=== PATIENT | female | born 1975 | race Hispanic/Latino ===

== ENCOUNTER 2018-06-22 10:44 | Emergency (ER) | payer OTHER ==
[2018-06-22 10:48] VITALS: BMI 24.0
[2018-06-22] MEDS ORDERED: Sodium Chloride 0.9% 1,000 ML IV STA (11:41)
[2018-06-22 12:35] LABS: BASO # 0.03 K/mm3 (0.0-2.0); BASO % 0.4 % (0.0-3.0); EOS # 0.1 (0.0-0.7); EOS % 0.6 % (1.5-5.0); GRAN # 5.32 (1.4-6.5); GRAN % 65.8 % (50.0-68.0); HEMOGLOBIN 13.1 g/dL (12.0-16.0); LYMPH # 2.3 (1.2-3.4); MEAN CELL VOLUME 91.8 fl (80.0-105.0); MEAN CORPUSCULAR HEMOGLOBIN 30.8 pg (25.0-35.0); MEAN CORPUSCULAR HGB CONC 33.6 g/dl (31.0-37.0); MEAN PLATELET VOLUME 8.6 fl (7.0-11.0); MONO # 0.4 (0.1-0.6); MONO % 5.2 % (1.0-6.0); RBC 4.25 10^6/uL (3.5-6.1); RED CELL DISTRIBUTION WIDTH 13.9 % (11.5-14.5); WHITE BLOOD COUNT 8.1 10^3/ul (4.5-11.0)
[2018-06-22 12:47] LABS: ALB/GLOB RATIO 1.3 (1.1-1.8); ALBUMIN 4.4 g/dL (3.0-4.8); ALT/SGPT 36 U/L (7-56); AST/SGOT 62 U/L (14-36); BLOOD UREA NITROGEN 6 mg/dL (7-21); CALCIUM 8.2 mg/dL (8.4-10.5); GFR NON-AFRICAN AMERICAN > 60
--- NOTE | 2018-06-22 13:30 | ED PDOC ---
Arrival/HPI <Randal Reis - Last Filed: 06/22/18 15:43> - General Historian: Patient, EMS - History of Present Illness Narrative History of Present Illness (Text): 06/22/18 13:35 42 y/o female with PMH of DM and alcohol/substance abuse presents to ED via EMS for acute alcohol intoxication. Pt was found sleeping on a stoop on [address] in [place] this morning. Pt unable to provide name or other identifying factors. Currently c/o nausea and left thigh bruise and tenderness, unable to tell me how bruising occurred but states she did not fall. States she took her Metformin this AM. Denies fevers, chest pain, palpitations, SOB, abdominal pain, urinary symptoms, headache, neck pain, back pain. <Sara Norman - Last Filed: 06/22/18 21:03> - General Chief Complaint: Alcohol Ingestion Time Seen by Provider: 06/22/18 10:54 Past Medical History - Provider Review Nursing Documentation Reviewed: Yes - Cardiac Hx Cardiac Disorders: No - Pulmonary Hx Respiratory Disorders: No - Neurological Hx Neurological Disorder: No - HEENT Hx HEENT Disorder: No - Renal Hx Renal Disorder: No - Endocrine/Metabolic Hx Endocrine Disorders: Yes Hx Diabetes Mellitus Type 2: Yes - Hematological/Oncological Hx Blood Disorders: No - Integumentary Hx Dermatological Disorder: No - Musculoskeletal/Rheumatological Hx Musculoskeletal Disorders: No - Gastrointestinal Hx Gastrointestinal Disorders: No - Genitourinary/Gynecological Hx Genitourinary Disorders: No - Psychiatric Hx Psychophysiologic Disorder: No Hx Substance Use: No <Sara Norman - Last Filed: 06/22/18 21:03> Family/Social History - Physician Review Nursing Documentation Reviewed: Yes Family/Social History: Unknown Family HX Smoking Status: Never Smoked Hx Alcohol Use: No Hx Substance Use: No <Sara Norman - Last Filed: 06/22/18 21:03> Allergies/Home Meds <Randal Reis - Last Filed: 06/22/18 15:43> <Sara Norman - Last Filed: 06/22/18 21:03> Allergies/Adverse Reactions: Allergies No Known Allergies Allergy (Verified 06/22/18 10:48) Home Medications: Home Meds Medication Instructions Recorded Confirmed No Known Home Med 06/22/18 06/22/18 Review of Systems - Physician Review All systems were reviewed & negative as marked: Yes - Review of Systems Systems not reviewed;Unavailable: Intoxicated Respiratory: absent: SOB, Cough Cardiovascular: absent: Chest Pain, Palpitations Gastrointestinal: absent: Abdominal Pain, Nausea, Vomiting Genitourinary Female: absent: Urine Output Changes, Vaginal Bleeding Musculoskeletal: Myalgias (left thigh). absent: Back Pain, Neck Pain Skin: Other Neurological: Speech Changes (slurred speech). absent: Headache, Focal Weakness <Sara Norman - Last Filed: 06/22/18 21:03> Physical Exam Vital Signs Temp Pulse Resp BP Pulse Ox 06/22/18 11:36 97.2 F L 88 18 129/85 99 <Randal Reis - Last Filed: 06/22/18 15:43> Vital Signs Reviewed: Yes Vital Signs Temp Pulse Resp BP Pulse Ox 06/22/18 11:36 97.2 F L 88 18 129/85 99 Temperature: Afebrile Blood Pressure: Normal Pulse: Regular Respiratory Rate: Normal Appearance: Positive for: Well-Appearing, Non-Toxic, Comfortable Pain Distress: None Mental Status: Positive for: Alert and Oriented X 3 - Systems Exam Head: Present: Atraumatic, Normocephalic Pupils: Present: PERRL, Other (dilated) Extroacular Muscles: Present: EOMI Conjunctiva: Present: Normal Ears: Present: NORMAL TM Mouth: Present: Moist Mucous Membranes Pharnyx: Present: Normal Nose (External): Present: Atraumatic Nose (Internal): Present: Normal Inspection, No Active Bleeding, Moist Neck: Present: Normal Range of Motion. No: Meningeal Signs, MIDLINE TENDERNESS, Paraspinal Tenderness Respiratory/Chest: Present: Clear to Auscultation, Good Air Exchange. No: Respiratory Distress, Accessory Muscle Use Cardiovascular: Present: Regular Rate and Rhythm, Normal S1, S2. No: Murmurs Abdomen: Present: Normal Bowel Sounds. No: Tenderness, Distention, Peritoneal Signs, Rebound, Guarding Back: Present: Normal Inspection Upper Extremity: Present: Normal Inspection, Normal ROM, NORMAL PULSES. No: Cyanosis, Edema, Tenderness, Swelling, Erythema, Deformity Lower Extremity: Present: Normal Inspection, NORMAL PULSES, Normal ROM, Tenderness (left inner thigh), Neurovascularly Intact, Other (old, well-healing bruise over entirety of left inner thigh). No: Edema, CALF TENDERNESS, Mert's Sign, Swelling, Erythema, Deformity, Temperature Abnormalties Neurological: Present: GCS=15, CN II-XII Intact, Speech Normal, Motor Func Grossly Intact, Normal Sensory Function, Gait Normal Skin: Present: Warm, Dry, Other (old, well-healing bruise over entirety of left inner thigh). No: Rashes, Normal Color, Diaphoretic, Erythematous, Induration, Hot, Cold, Pale, Laceration, Abrasion Lymphatic: No: Cervical Adenopathy Psychiatric: Present: Alert, Oriented x 3, Normal Insight, Normal Concentration, Intoxicated. No: Anxious, Agitated, Depressed Mood, Suicidal Ideation, Homicidal Ideation, Delusional, Hallucinations, Lethargic <Sara Norman - Last Filed: 06/22/18 21:03> Medical Decision Making - Lab Interpretations Lab Results: 06/22/18 12:20 06/22/18 12:20 Lab Results 06/22/18 14:50: Urine Color Colorless, Urine Appearance Clear, Urine pH 6.5, Ur Specific Newell <= 1.005, Urine Protein Negative, Urine Glucose (UA) Negative, Urine Ketones Negative, Urine Blood Negative, Urine Nitrate Negative, Urine Germán irubin Negative, Urine Urobilinogen 0.2, Ur Leukocyte Esterase Negative 06/22/18 12:20: Alcohol, Quantitative 461 H* 06/22/18 12:20: WBC 8.1, RBC 4.25, Hgb 13.1, Hct 39.0, MCV 91.8, MCH 30.8, MCHC 33.6, RDW 13.9, Plt Count 431, MPV 8.6, Gran % 65.8, Lymph % (Auto) 28.0, Mcnairy % (Auto) 5.2, Eos % (Auto) 0.6 L, Baso % (Auto) 0.4, Gran # 5.32, Lymph # (Auto) 2.3, Mcnairy # (Auto) 0.4, Eos # (Auto) 0.1, Baso # (Auto) 0.03 06/22/18 12:20: Sodium 141, Potassium 3.9, Chloride 100, Carbon Dioxide 22, Anion Gap 23 H, BUN 6 L, Creatinine 0.5 L, Est GFR ( Amer) > 60, Est GFR (Non-Af Amer) > 60, Random Glucose 169 H, Calcium 8.2 L, Total Bilirubin 0.2, AST 62 H, ALT 36, Alkaline Phosphatase 53, Total Protein 7.7, Albumin 4.4, Globulin 3.3, Albumin/Globulin Ratio 1.3 - RAD Interpretation Radiology Orders: 06/22/18 14:52 Femur Left [FEMUR MIN 2 VIEWS LT] [RAD] Stat HIP MIN 2V W/ PELVIS LT [RAD] Stat - Medication Orders Current Medication Orders: Discontinued Medications Sodium Chloride (Sodium Chloride 0.9%) 1,000 mls @ 999 mls/hr IV .Q1H1M STA Stop: 06/22/18 12:41 Last Admin: 06/22/18 12:29 Dose: 999 mls/hr eMAR Start Stop Document 06/22/18 12:29 [email or web address] (Rec: 06/22/18 12:30 [email or web address] [id number]) Intravenous Solution Start Date 06/22/18 Start Time 12:30 Ketorolac Tromethamine (Toradol) 15 mg IVP STAT STA Stop: 06/22/18 13:51 Last Admin: 06/22/18 15:20 Dose: 15 mg MAR Pain Assessment Document 06/22/18 15:20 [email or web address] (Rec: 06/22/18 15:20 [email or web address] [id number]) Pain Reassessment Is this a pain reassessment? No Sleep Is patient sleeping during reassessment? No Presence of Pain Presence of Pain Yes Pain Scale Used Protocol: PSCALES Pain Scale Used Numeric Location Pain Location Body Site Abdomen Description Description Constant Intensity of Pain at present 7 Pain Behavior Facial Grimacing Alleviating Factors/Management Medication Techniques Alleviating Factors Medication IVP Administration Document 06/22/18 15:20 [email or web address] (Rec: 06/22/18 15:20 [email or web address] [id number]) Charges for Administration # of IVP Administrations 1 Ondansetron HCl (Zofran Inj) 4 mg IVP STAT STA Stop: 06/22/18 13:48 Last Admin: 06/22/18 15:17 Dose: 4 mg IVP Administration Document 06/22/18 15:17 [email or web address] (Rec: 06/22/18 15:20 [email or web address] [id number]) Charges for Administration # of IVP Administrations 1 <Randal Reis - Last Filed: 06/22/18 15:43> ED Course and Treatment: 06/22/18 13:27 Initial Plan: --CBC, CMP --Alcohol Level --Urine Drug Screen --POC Preg --Left hip, left femur xray --IVF --Reassess and disposition --Discharge when clinically sober 06/22/18 14:55 On re-eval, exam unchanged. Pt continues to deny alcohol or drug use. CBC: wnl CMP: elevated AST, otherwise unremarkable Alcohol Level: 461 Urine Drug Screen: negative POC Preg - negative Left Hip XR - FINDINGS: BONES: Normal. No fracture. JOINTS: Normal. SOFT TISSUES: Normal. OTHER FINDINGS: None. IMPRESSION: Normal left hip radiographs. Left femur XR - FINDINGS: No significant/acute osseous, articular or soft tissue abnormalities. IMPRESSION: Negative study 06/22/18 15:54 On re-eval, exam unchanged. Pt continues to deny alcohol or drug use. 06/22/18 16:55 On re-eval, exam unchanged. Pt continues to deny alcohol or drug use. 06/22/18 18:45 Pt becoming agitated and aggressive, demanding to be discharged. Explained to pt that because she does not have a ride home, she cannot leave until her alcohol level is <100, approximately 1:00am. Pt removed her IV line. - will give 1mg IM Ativan 06/22/18 18:55 Pt resting quietly in bed, watching TV. Complaining of pain over left thigh brui sing. -will give lidoderm patch 06/22/18 19:24 Pt able to find a friend to pick her up. Friend is capable of taking care of and observing pt at home. Pt alert and oriented with steady gait, safe for discharge home with friend. Impression: Alcohol Intoxication, Alcohol abuse Plan: --Stop alcohol consumption --remove lidoderm patch after 12h --ibuprofen every 6 hours with food for pain --Seek AA --Increase fluids --Followup with primary doctor within 2 days --Return to ED with new or worsening symptoms - Lab Interpretations Lab Results: 06/22/18 12:20 06/22/18 12:20 Lab Results 06/22/18 12:20: Alcohol, Quantitative 461 H* 06/22/18 12:20: WBC 8.1, RBC 4.25, Hgb 13.1, Hct 39.0, MCV 91.8, MCH 30.8, MCHC 33.6, RDW 13.9, Plt Count 431, MPV 8.6, Gran % 65.8, Lymph % (Auto) 28.0, Mcnairy % (Auto) 5.2, Eos % (Auto) 0.6 L, Baso % (Auto) 0.4, Gran # 5.32, Lymph # (Auto) 2.3, Mcnairy # (Auto) 0.4, Eos # (Auto) 0.1, Baso # (Auto) 0.03 06/22/18 12:20: Sodium 141, Potassium 3.9, Chloride 100, Carbon Dioxide 22, Anion Gap 23 H, BUN 6 L, Creatinine 0.5 L, Est GFR ( Amer) > 60, Est GFR (Non-Af Amer) > 60, Random Glucose 169 H, Calcium 8.2 L, Total Bilirubin 0.2, AST 62 H, ALT 36, Alkaline Phosphatase 53, Total Protein 7.7, Albumin 4.4, Globulin 3.3, Albumin/Globulin Ratio 1.3 I have reviewed the lab results: Yes Interpretation: No sign. chg./baseline - Medication Orders Current Medication Orders: Discontinued Medications Sodium Chloride (Sodium Chloride 0.9%) 1,000 mls @ 999 mls/hr IV .Q1H1M STA Stop: 06/22/18 12:41 Last Admin: 06/22/18 12:29 Dose: 999 mls/hr eMAR Start Stop Document 06/22/18 12:29 [email or web address] (Rec: 06/22/18 12:30 [email or web address] [id number]) Intravenous Solution Start Date 06/22/18 Start Time 12:30 <Sara Norman - Last Filed: 06/22/18 21:03> - PA / ENGLISH INSTRUCTOR / Resident Statement /DO has reviewed & agrees with the documentation as recorded. <Randal Reis - Last Filed: 06/22/18 15:43> Disposition/Present on Arrival <Randal Reis - Last Filed: 06/22/18 15:43> - Present on Arrival Any Indicators Present on Arrival: No History of DVT/PE: No History of Uncontrolled Diabetes: No Urinary Catheter: No History of Decub. Ulcer: No History Surgical Site Infection Following: None - Disposition Have Diagnosis and Disposition been Completed?: No Disposition Time: 13:00 Patient Plan: Discharge <Sara Norman - Last Filed: 06/22/18 21:03> - Disposition Diagnosis: Alcohol abuse Disposition: HOME/ ROUTINE Condition: IMPROVED Discharge Instructions (ExitCare): Alcohol Abuse and Alcoholism (DC) Additional Instructions: --Stop alcohol consumption --Seek AA --Increase fluids --Followup with primary doctor within 2 days --Return to ED with new or worsening symptoms Referrals: Harini Corea DO [Primary Care Provider] - Follow up with primary [facility] [Outside] - Follow up with primary Forms: [employer] (Israeli)
[2018-06-22 15:31] LABS: PH,URINE 6.5 (4.7-8.0); URINE BILIRUBIN NEGATIVE (NEGATIVE); URINE BLOOD NEGATIVE (NEGATIVE); URINE GLUCOSE (UA) NEGATIVE (NEGATIVE); URINE LEUKOCYTE ESTERASE NEGATIVE Leu/uL (NEGATIVE); URINE PROTEIN NEGATIVE mg/dL (<30 mg/dL); URINE UROBILINOGEN 0.2 E.U./dL (<1 E.U./dL)
[2018-06-22 15:32] LABS: URINE APPEARANCE CLEAR (CLEAR); URINE COLOR COLORLESS (YELLOW)
[2018-06-22 15:51] LABS: BARBITURATES, UR NEGATIVE (NEGATIVE)
[2018-06-22 16:08] LABS: BENZODIAZEPINES, UR NEGATIVE (NEGATIVE); OPIATES, UR NEGATIVE (NEGATIVE); PHENCYCLIDINE, UR NEGATIVE (NEGATIVE)
--- NOTE | 2018-06-22 18:22 | RAD ---
PROCEDURE: Left Hip X-ray Radiographs. HISTORY: bruising, possible trauma COMPARISON: None. FINDINGS: BONES: Normal. No fracture. JOINTS: Normal. SOFT TISSUES: Normal. OTHER FINDINGS: None. IMPRESSION: Normal left hip radiographs.
--- NOTE | 2018-06-22 18:23 | RAD ---
Date of service: 06/22/2018 PROCEDURE: Left femur HISTORY: bruising, possible fall COMPARISON: June 22, 2018 left hip reported separately TECHNIQUE: Standard protocol for this study/examination. FINDINGS: No significant/acute osseous, articular or soft tissue abnormalities. IMPRESSION: Negative study
[2018-06-22 18:36] VITALS: RESP 17; O2SAT 99
[2018-06-22] MEDS ORDERED: Lidocaine 5% Patch TD STA (18:47)
[2018-06-22 19:37] VITALS: BP 128/72; PULSE 89; TEMP 98.2
== END 2018-06-22 19:37 | disposition home or self-care (01) ==
LOC: MERGE 10:44 → ED 10:44
DX: F10.129 Alcohol abuse with intoxication, unspecified (principal); E11.9 Type 2 diabetes mellitus without complications
CPT/HCPCS: 73502; 73552; 80053; 80320; 80324; 80345; 80346; 80349; 80353; 80358; 80361; 81003; 82948; 83992; 85025; 87086; 96372; 96374; 96375; 96376; 99284; J1885; J2060; J2405; J7030

== ENCOUNTER 2018-08-28 21:35 | Emergency (ER) | payer OTHER ==
[2018-08-28 21:35] VITALS: BMI 25.0
[2018-08-28 23:37] LABS: HEMOGLOBIN 13.8 g/dL (12.0-16.0); MEAN CORPUSCULAR HEMOGLOBIN 32.6 pg (25.0-35.0); MEAN CORPUSCULAR HGB CONC 32.3 g/dl (31.0-37.0); MEAN PLATELET VOLUME 8.8 fl (7.0-11.0); RBC 4.23 10^6/uL (3.5-6.1); RED CELL DISTRIBUTION WIDTH 15.1 % (11.5-14.5); WHITE BLOOD COUNT 5.6 10^3/uL (4.5-11.0)
[2018-08-28 23:41] LABS: ALB/GLOB RATIO 1.2 (1.1-1.8); ALBUMIN 4.6 g/dL (3.0-4.8); ALT/SGPT 50 U/L (7-56); AST/SGOT 77 U/L (14-36); BLOOD UREA NITROGEN 13 mg/dL (7-21); CALCIUM 8.3 mg/dL (8.4-10.5); GFR NON-AFRICAN AMERICAN > 60; MEAN CELL VOLUME 100.9 fl (80.0-105.0)
--- NOTE | 2018-08-29 01:59 | ED PDOC ---
Arrival/HPI - General Chief Complaint: Alcohol Ingestion Time Seen by Provider: 08/28/18 21:38 EM Caveat: Intoxicated - History of Present Illness Narrative History of Present Illness (Text): 08/28/18 21:50 42 year old female, whose past medical history includes alcohol abuse and diabetes, who presents to the Emergency department brought in by EMS after [place]. Patient has a long standing history of alcohol abuse and has been seen multiple times for the intoxication. Patient in the Emergency department on arrival appears grossly intoxicated drowsy, but arousable. Patient is unable to clearly verbalize. HPI and ROS limited due to patient's state of intoxication. Past Medical History - Provider Review Nursing Documentation Reviewed: Yes - Infectious Disease Hx of Infectious Diseases: None - Tetanus Immunization Tetanus Immunization: Unknown - Past Medical History Past Medical History: Unable to Obtain - Cardiac Hx Cardiac Disorders: No - Pulmonary Hx Respiratory Disorders: No - Neurological Hx Neurological Disorder: No - HEENT Hx HEENT Disorder: No - Renal Hx Renal Disorder: No - Endocrine/Metabolic Hx Endocrine Disorders: No - Hematological/Oncological Hx Blood Disorders: No - Integumentary Hx Dermatological Disorder: No - Musculoskeletal/Rheumatological Hx Musculoskeletal Disorders: No - Gastrointestinal Hx Gastrointestinal Disorders: No - Genitourinary/Gynecological Hx Genitourinary Disorders: No - Psychiatric Hx Psychophysiologic Disorder: No Hx Substance Use: Yes - Past Surgical History Past Surgical History: Unable to Obtain - Anesthesia Hx Anesthesia: No - Suicidal Assessment Feels Threatened In Home Enviroment: No Family/Social History - Physician Review Nursing Documentation Reviewed: Yes Family/Social History: No Known Family HX Smoking Status: Current Some Days Smoker Hx Alcohol Use: Yes Frequency of alcohol use: Daily Hx Substance Use: Yes Hx Substance Use Treatment: No Allergies/Home Meds Allergies/Adverse Reactions: Allergies pineapple Allergy (Verified 08/28/18 21:51) RASH ziprasidone HCl [From Geodon] Adverse Reaction (Verified 08/28/18 21:51) FATIGUE Home Medications: Home Meds Medication Instructions Recorded Confirmed Unobtainable 06/23/18 08/28/18 Review of Systems - Physician Review All systems were reviewed & negative as marked: Yes - Review of Systems Systems not reviewed;Unavailable: Intoxicated Physical Exam Vital Signs Reviewed: Yes Vital Signs Temp Pulse Resp BP Pulse Ox 08/28/18 21:51 97.2 F L 81 16 109/81 96 Temperature: Afebrile Blood Pressure: Normal Pulse: Regular Respiratory Rate: Normal Appearance: Positive for: Well-Appearing, Non-Toxic, Comfortable Pain Distress: None Mental Status: Positive for: other (Drowsy but arousable) Finger Stick Blood Glucose: 90 - Systems Exam Head: Present: Atraumatic, Normocephalic Pupils: Present: PERRL Extroacular Muscles: Present: EOMI Conjunctiva: Present: Normal Mouth: Present: Moist Mucous Membranes Neck: Present: Normal Range of Motion Respiratory/Chest: Present: Clear to Auscultation, Good Air Exchange. No: Respiratory Distress, Accessory Muscle Use Cardiovascular: Present: Regular Rate and Rhythm, Normal S1, S2. No: Murmurs Abdomen: No: Tenderness, Distention, Peritoneal Signs Back: Present: Normal Inspection Upper Extremity: Present: Normal Inspection. No: Cyanosis, Edema Lower Extremity: Present: Normal Inspection. No: Edema Neurological: Present: GCS=15, CN II-XII Intact Skin: Present: Warm, Dry, Normal Color. No: Rashes Psychiatric: Present: Intoxicated, Other (Drowsy but arousable) Medical Decision Making ED Course and Treatment: 08/28/18 21:50 Impression: 42 year old female presents for public intoxication tonight. Plan: -- EKG -- Labs -- Reassess and disposition Prior Visits: Notes and results from previous visits were reviewed. Progress Notes: 08/29/18 04:22 EKG shows NSR at 67 BPM with prolong QT. Nonspecific St/T changes. Interpreted by me. 08/29/18 07:00 Case endorsed to /pending sobriety/reassess/final disposition - Lab Interpretations Lab Results: 08/28/18 22:54 08/28/18 22:54 Lab Results 08/28/18 22:54: WBC 5.6, RBC 4.23, Hgb 13.8, Hct 42.7, MCV 100.9 D, MCH 32.6, MCHC 32.3, RDW 15.1 H, Plt Count 359, MPV 8.8 08/28/18 22:54: Alcohol, Quantitative 510 H* 08/28/18 22:54: Sodium 148, Potassium 4.2, Chloride 109 H, Carbon Dioxide 27, Anion Gap 16, BUN 13, Creatinine 0.6 L, Est GFR ( Amer) > 60, Est GFR (Non-Af Amer) > 60, Random Glucose 95, Calcium 8.3 L, Total Bilirubin 0.3, AST 77 H D, ALT 50, Alkaline Phosphatase 62, Total Protein 8.3, Albumin 4.6, Globulin 3.7, Albumin/Globulin Ratio 1.2 I have reviewed the lab results: Yes - EKG Interpretation Interpreted by ED Physician: Yes Type: 12 lead EKG - Scribe Statement The provider has reviewed the documentation as recorded by the Jamaica Bender Provider Scribe Attestation: All medical record entries made by the [place] were at my direction and personally dictated by me. I have reviewed the chart and agree that the record accurately reflects my personal performance of the history, physical exam, medical decision making, and the department course for this patient. I have also personally directed, reviewed, and agree with the discharge instructions and disposition. Disposition/Present on Arrival - Present on Arrival Any Indicators Present on Arrival: No History of DVT/PE: No History of Uncontrolled Diabetes: No Urinary Catheter: No History of Decub. Ulcer: No History Surgical Site Infection Following: None - Disposition Have Diagnosis and Disposition been Completed?: No Diagnosis: Alcohol intoxication Disposition Time: 07:00 Patient Problems: Current Active Problems Problem Status Onset Alcohol intoxication Acute Condition: STABLE Forms: [employer] (Martiniquais)
[2018-08-29 02:38] VITALS: RESP 16
--- NOTE | 2018-08-29 07:13 | ED PDOC ---
Physical Exam Vital Signs Reviewed: Yes Vital Signs Temp Pulse Resp BP Pulse Ox 08/29/18 05:30 97.7 F 72 16 112/74 96 08/29/18 02:35 70 16 110/69 96 08/29/18 00:01 97.6 F 75 18 117/82 96 08/28/18 21:51 97.2 F L 81 16 109/81 96 Temperature: Afebrile Blood Pressure: Normal Pulse: Regular Respiratory Rate: Normal Appearance: Positive for: Well-Appearing, Non-Toxic, Comfortable Pain Distress: None Mental Status: Positive for: Alert and Oriented X 3 Finger Stick Blood Glucose: 90 - Systems Exam Head: Present: Atraumatic, Normocephalic Pupils: Present: PERRL Extroacular Muscles: Present: EOMI Conjunctiva: Present: Normal Mouth: Present: Moist Mucous Membranes Neck: Present: Normal Range of Motion Respiratory/Chest: Present: Clear to Auscultation, Good Air Exchange. No: Respiratory Distress, Accessory Muscle Use Cardiovascular: Present: Regular Rate and Rhythm, Normal S1, S2. No: Murmurs Abdomen: No: Tenderness, Distention, Peritoneal Signs Back: Present: Normal Inspection Upper Extremity: Present: Normal Inspection. No: Cyanosis, Edema Lower Extremity: Present: Normal Inspection. No: Edema Neurological: Present: GCS=15, CN II-XII Intact, Speech Normal Skin: Present: Warm, Dry, Normal Color. No: Rashes Psychiatric: Present: Alert, Oriented x 3, Intoxicated Medical Decision Making ED Course and Treatment: 08/29/18 07:11 Case endorsed to me by Dr. Rodriguez with ETOH of 510 at 11pm last night. Labs are unremarkable except ETOH of 510, indicates etoh clears at approximately ~1 pm. Pt in NAD 08/29/18 09:11 Pt endorsed she wanted to leave- I endorsed she was not clinically sober yet. She noted that she doesnt have to listen to me. I informed her possible requirement of sedation and prolongation of stay. She 08/29/18 12:15 Reassessed, clinically sober, no signs of withdrawal walking well in NAD. Normal neuro exam Pt clear for d/c home, reccomended by myself to decrease etoh. Pt endorsed understanding. - Lab Interpretations Lab Results: 08/28/18 22:54 08/28/18 22:54 Lab Results 08/28/18 22:54: WBC 5.6, RBC 4.23, Hgb 13.8, Hct 42.7, MCV 100.9 D, MCH 32.6, MCHC 32.3, RDW 15.1 H, Plt Count 359, MPV 8.8 08/28/18 22:54: Alcohol, Quantitative 510 H* 08/28/18 22:54: Sodium 148, Potassium 4.2, Chloride 109 H, Carbon Dioxide 27, Anion Gap 16, BUN 13, Creatinine 0.6 L, Est GFR ( Amer) > 60, Est GFR (Non-Af Amer) > 60, Random Glucose 95, Calcium 8.3 L, Total Bilirubin 0.3, AST 77 H D, ALT 50, Alkaline Phosphatase 62, Total Protein 8.3, Albumin 4.6, Globulin 3.7, Albumin/Globulin Ratio 1.2 I have reviewed the lab results: Yes - Scribe Statement The provider has reviewed the documentation as recorded by the Scribe Caitlyn Tian Provider Scribe Attestation: All medical record entries made by the Scribe were at my direction and personally dictated by me. I have reviewed the chart and agree that the record accurately reflects my personal performance of the history, physical exam, medical decision making, and the department course for this patient. I have also personally directed, reviewed, and agree with the discharge instructions and dis position. Disposition/Present on Arrival - Present on Arrival Any Indicators Present on Arrival: No History of DVT/PE: No History of Uncontrolled Diabetes: No Urinary Catheter: No History of Decub. Ulcer: No History Surgical Site Infection Following: None - Disposition Have Diagnosis and Disposition been Completed?: Yes Diagnosis: Alcohol intoxication Disposition Time: 12:14 Patient Problems: Current Active Problems Problem Status Onset Alcohol intoxication Acute Condition: STABLE Discharge Instructions (ExitCare): Alcohol Use - When Is Drinking a Problem?, Effects of Alcohol on Your Health Additional Instructions: DECREASE THE AMOUNT OF ALCOHOL YOU ARE DRINKING. IT IS BAD FOR YOUR HEALTH. AKHIL CHAN, thank you for letting us take care of you today. Your provider was Nickolas Dickerson and you were treated for ETOH. The emergency medical care you received today was directed at your acute symptoms. If you were prescribed any medication, please fill it and take as directed. It may take several days for your symptoms to resolve. Return to the Emergency Department if your symptoms worsen, do not improve, or if you have any other problems. Please contact your doctor or call one of the physicians/clinics you have been referred to that are listed on the Patient Visit Information form that is included in your discharge packet. Bring any paperwork you were given at discharge with you along with any medications you are taking to your follow up visit. Our treatment cannot replace ongoing medical care by a primary care provider outside of the emergency department. Thank you for allowing the [employer] team to be part of your care today. If you had an X-Ray or CT scan: A Radiologist will review the ED reading if any change in treatment is needed we will contact you. If you had a blood, urine, or wound culture: It will take several days for the results, if any change in treatment is needed we will contact you. If you had an STI test: It will take 48 hours for the results. Please call after 1 week if you have not heard back. Referrals: [facility] [Outside] - Follow up with primary [facility] [Outside] - Follow up with primary [facility] [Outside] - Follow up with primary [facility] [Outside] - Follow up with primary Forms: [employer] (Sami)
[2018-08-29 08:59] LABS: BARBITURATES, UR POSITIVE (NEGATIVE); BENZODIAZEPINES, UR NEGATIVE (NEGATIVE); OPIATES, UR NEGATIVE (NEGATIVE); PHENCYCLIDINE, UR NEGATIVE (NEGATIVE)
[2018-08-29 09:11] VITALS: O2SAT 98
[2018-08-29 12:12] VITALS: BP 133/77; PULSE 74; TEMP 98
--- NOTE | 2018-08-29 23:43 | CARD ---
APPROVED REPORT Date of service: 08/29/2018 EKG Measurement Heart [id number] <Conclusion> Normal sinus rhythm Possible Left atrial enlargement Prolonged QT Abnormal ECG
== END 2018-08-29 12:24 | disposition home or self-care (01) ==
LOC: ED 21:35
DX: F10.129 Alcohol abuse with intoxication, unspecified (principal); E11.9 Type 2 diabetes mellitus without complications

== ENCOUNTER 2018-12-09 22:24 | Emergency (ER) | payer OTHER ==
[2018-12-09 22:24] VITALS: BMI 25.0
[2018-12-09 23:27] VITALS: BP 132/87; PULSE 78; RESP 19; O2SAT 97
--- NOTE | 2018-12-09 23:28 | ED PDOC ---
Arrival/HPI - General Historian: Patient - History of Present Illness Narrative History of Present Illness (Text): 12/09/18 23:25 43 year old female, whose past medical history includes alcohol abuse and diabetes, who presents to the Emergency department brought in by EMS for public intoxication. Patient admits to drinking alcohol tonight. Patient reports no vomiting, abdominal pain, CP, SOB, headache, trauma or injury, SI or HI. <Alivia Gannon PA-C - Last Filed: 12/10/18 00:50> <Osman Sosa - Last Filed: 12/10/18 06:21> - General Chief Complaint: Alcohol Ingestion Time Seen by Provider: 12/09/18 22:25 Past Medical History - Infectious Disease Hx of Infectious Diseases: None - Tetanus Immunization Tetanus Immunization: Unknown - Past Medical History Past Medical History: Unable to Obtain - Cardiac Hx Cardiac Disorders: No - Pulmonary Hx Respiratory Disorders: No - Neurological Hx Neurological Disorder: No - HEENT Hx HEENT Disorder: No - Renal Hx Renal Disorder: No - Endocrine/Metabolic Hx Endocrine Disorders: No - Hematological/Oncological Hx Blood Disorders: No - Integumentary Hx Dermatological Disorder: No - Musculoskeletal/Rheumatological Hx Musculoskeletal Disorders: No - Gastrointestinal Hx Gastrointestinal Disorders: No - Genitourinary/Gynecological Hx Genitourinary Disorders: No - Psychiatric Hx Psychophysiologic Disorder: No Hx Substance Use: Yes - Past Surgical History Past Surgical History: Unable to Obtain - Anesthesia Hx Anesthesia: No - Suicidal Assessment Feels Threatened In Home Enviroment: No <Alivia Gannon PA-C - Last Filed: 12/10/18 00:50> Family/Social History Family/Social History: Hypertension Smoking Status: Current Some Days Smoker Hx Alcohol Use: Yes Hx Substance Use: Yes Hx Substance Use Treatment: No <Alivia Gannon PA-C - Last Filed: 12/10/18 00:50> Allergies/Home Meds <Alivia Gannon PA-C - Last Filed: 12/10/18 00:50> <Osman Sosa - Last Filed: 12/10/18 06:21> Allergies/Adverse Reactions: Allergies EGG Allergy (Verified 08/29/18 07:58) RASH pineapple Allergy (Verified 08/28/18 21:51) RASH ziprasidone HCl [From Geodon] Adverse Reaction (Verified 08/28/18 21:51) FATIGUE Home Medications: Home Meds Medication Instructions Recorded Confirmed Unobtainable 06/23/18 08/28/18 Review of Systems - Review of Systems Systems not reviewed;Unavailable: Intoxicated <Alivia Gannon PA-C - Last Filed: 12/10/18 00:50> Physical Exam Appearance: Positive for: Well-Appearing, Non-Toxic, Comfortable Pain Distress: None Mental Status: Positive for: other (Pt is alert, +odor of etoh) - Systems Exam Head: Present: Atraumatic, Normocephalic Conjunctiva: Present: Normal Mouth: Present: Moist Mucous Membranes Neck: Present: Normal Range of Motion Respiratory/Chest: Present: Clear to Auscultation, Good Air Exchange. No: Respiratory Distress, Accessory Muscle Use Cardiovascular: Present: Regular Rate and Rhythm, Normal S1, S2. No: Murmurs Abdomen: No: Tenderness, Distention, Peritoneal Signs Back: Present: Normal Inspection Upper Extremity: Present: Normal Inspection. No: Cyanosis, Edema Lower Extremity: Present: Normal Inspection. No: Edema Neurological: Present: GCS=15, CN II-XII Intact, Other (+slurred speech, gait is unsteady) Skin: Present: Warm, Dry, Normal Color. No: Rashes Psychiatric: Present: Alert <Alivia Gannon PA-C - Last Filed: 12/10/18 00:50> Vital Signs Pulse Resp BP Pulse Ox 12/09/18 23:27 78 19 132/87 97 <Osman Sosa - Last Filed: 12/10/18 06:21> Medical Decision Making ED Course and Treatment: 12/09/18 23:27 FS : 97 Will observe the patient in the ER until she is clinically sober and safe for d/c home. 12/10/18 00:43 Patient remains awake, alert, in no acute distress, laying in bed comfortably, breathing easy and unlabored, is requesting to eat, given a meal tray. Will continue to observe until sober. - Medication Orders Current Medication Orders: Discontinued Medications Ondansetron HCl (Zofran Inj) 4 mg IVP STAT STA Stop: 12/09/18 22:47 <Alivia Gannon PA-C - Last Filed: 12/10/18 00:50> ED Course and Treatment: 12/10/18 06:21 patient is awake and alert with clear speech and steady gait, no s/s of alcohol withdrawal, stable for dc - Medication Orders Current Medication Orders: Discontinued Medications Ondansetron HCl (Zofran Inj) 4 mg IVP STAT STA Stop: 12/09/18 22:47 Last Admin: 12/09/18 23:09 Dose: 4 mg IVP Administration Document 12/09/18 23:09 EB (Rec: 12/09/18 23:29 EB [facility] [id number]) Charges for Administration # of IVP Administrations 1 <Osman Sosa - Last Filed: 12/10/18 06:21> - PA / CLARK DRIVER / Resident Statement / has reviewed & agrees with the documentation as recorded. <Alivia Gannon PA-C - Last Filed: 12/10/18 00:50> Disposition/Present on Arrival - Present on Arrival Any Indicators Present on Arrival: No History of DVT/PE: No History of Uncontrolled Diabetes: No Urinary Catheter: No History of Decub. Ulcer: No History Surgical Site Infection Following: None - Disposition Have Diagnosis and Disposition been Completed?: Yes <Alivia Gannon PA-C - Last Filed: 12/10/18 00:50> - Disposition Disposition Time: 06:21 Patient Plan: Discharge <Osman Sosa - Last Filed: 12/10/18 06:21> - Disposition Diagnosis: Alcohol intoxication Disposition: HOME/ ROUTINE Patient Problems: Current Active Problems Problem Status Onset Alcohol intoxication Acute Condition: STABLE Discharge Instructions (ExitCare): Alcohol Use - When Is Drinking a Problem?, Alcohol Abuse and Alcoholism (DC) Additional Instructions: seek help for your alcohol abuse. Forms: [employer] (Angolan)
== END 2018-12-10 06:27 | disposition home or self-care (01) ==
LOC: ED 22:24
DX: F10.129 Alcohol abuse with intoxication, unspecified (principal); E11.9 Type 2 diabetes mellitus without complications; Z82.49 Family history of ischemic heart disease and other diseases of the circulatory system
CPT/HCPCS: 82948; 96374; 99281; J2405

== ENCOUNTER 2018-12-14 16:42 | Emergency (ER) | payer OTHER ==
[2018-12-14 16:42] VITALS: BMI 25.0
--- NOTE | 2018-12-14 17:00 | ED PDOC ---
Arrival/HPI - General Chief Complaint: Alcohol Ingestion Time Seen by Provider: 12/14/18 16:53 Historian: Patient, EMS - History of Present Illness Narrative History of Present Illness (Text): 12/14/18 16:53 43 y/o female, DM history?, frequent alcohol intoxication and abuse, allergic to ziprasidone, found by the EMS for public intoxication in front of the liquor store. Pt. stated that she has no fall or trauma, no neck/back/ chest/abdomen/extremity pain, admits drinking in public, no homicidal or suicidal ideatio, no auditory or visual hallucination, no tremors, no tongue fasciculation, no other medical or psychological complaints. Past Medical History - Provider Review Nursing Documentation Reviewed: Yes - Infectious Disease Hx of Infectious Diseases: None - Tetanus Immunization Tetanus Immunization: Unknown - Past Medical History Past Medical History: Unable to Obtain - Cardiac Hx Cardiac Disorders: No - Pulmonary Hx Respiratory Disorders: No - Neurological Hx Neurological Disorder: No - HEENT Hx HEENT Disorder: No - Renal Hx Renal Disorder: No - Endocrine/Metabolic Hx Endocrine Disorders: No - Hematological/Oncological Hx Blood Disorders: No - Integumentary Hx Dermatological Disorder: No - Musculoskeletal/Rheumatological Hx Musculoskeletal Disorders: No - Gastrointestinal Hx Gastrointestinal Disorders: No - Genitourinary/Gynecological Hx Genitourinary Disorders: No - Psychiatric Hx Anxiety: Yes Hx Substance Use: Yes - Past Surgical History Past Surgical History: Unable to Obtain - Anesthesia Hx Anesthesia: No - Suicidal Assessment Feels Threatened In Home Enviroment: No Family/Social History - Physician Review Nursing Documentation Reviewed: Yes Family/Social History: Unknown Family HX Smoking Status: Current Some Days Smoker Hx Alcohol Use: Yes Frequency of alcohol use: Daily Hx Substance Use: Yes Hx Substance Use Treatment: No Allergies/Home Meds Allergies/Adverse Reactions: Allergies EGG Allergy (Verified 12/14/18 16:48) RASH pineapple Allergy (Verified 12/14/18 16:48) [facility] Adverse Reaction (Verified 12/14/18 16:48) FATIGUE Home Medications: Home Meds Medication Instructions Recorded Confirmed Unobtainable 06/23/18 12/14/18 Review of Systems - Review of Systems Constitutional: absent: Fatigue, Fevers Eyes: absent: Vision Changes ENT: absent: Hearing Changes Respiratory: absent: SOB, Cough Cardiovascular: absent: Chest Pain Gastrointestinal: absent: Abdominal Pain, Diarrhea, Nausea, Vomiting Musculoskeletal: absent: Arthralgias, Back Pain Skin: absent: Rash, Pruritis Neurological: absent: Headache, Dizziness, Speech Changes, Facial Droop, Seizure Psychiatric: absent: Anxiety, Depression, Suicidal Ideation Physical Exam Vital Signs Reviewed: Yes Temperature: Afebrile Blood Pressure: Normal Pulse: Regular Respiratory Rate: Normal Appearance: Positive for: Well-Appearing, Non-Toxic, Comfortable Pain Distress: None Mental Status: Positive for: Alert and Oriented X 3 - Systems Exam Head: Present: Atraumatic, Normocephalic, Other (no facial bony tenderness or swelling, no facial abrasion or contussion. ). No: Tenderness, Contusion, Swelling, Ecchymosis, Abrasion, Laceration Pupils: Present: PERRL Extroacular Muscles: Present: EOMI Conjunctiva: Present: Normal Ears: Present: NORMAL TM, Normal Canal. No: Erythema Mouth: Present: Moist Mucous Membranes Pharnyx: No: ERYTHEMA, EXUDATE, TONSILS ENLARGED Nose (External): Present: Atraumatic. No: Abrasion, Contusion, Laceration, Lesions, Other Nose (Internal): Present: Normal Inspection, No Active Bleeding. No: Rhinorrhea, Septal Deviation, Septal Hematoma, Epistaxis Neck: Present: Normal Range of Motion, Trachea Midline. No: MIDLINE TENDERNESS, Paraspinal Tenderness, Lymphadenopathy Respiratory/Chest: Present: Clear to Auscultation, Good Air Exchange. No: Respiratory Distress, Accessory Muscle Use, Wheezes, Decreased Breath Sounds, Rales, Retracting, Rhonchi, Tachypneic, Tender to Palpation Cardiovascular: Present: Regular Rate and Rhythm, Normal S1, S2. No: Murmurs Abdomen: No: Tenderness, Distention, Peritoneal Signs, Rebound, Guarding Back: Present: Normal Inspection. No: CVA Tenderness, Midline Tenderness, Paraspinal Tenderness, Pain with Leg Raise, Decubitus Ulcer Upper Extremity: Present: Normal Inspection, Normal ROM, NORMAL PULSES, Neurovascularly Intact, Capillary Refill < 2s. No: Cyanosis, Edema, Deformity Lower Extremity: Present: Normal Inspection, Normal ROM, Neurovascularly Intact, Capillary Refill < 2 s. No: Edema, NORMAL PULSES, Tenderness, Swelling, Deformity Neurological: Present: GCS=15, CN II-XII Intact, Speech Normal, Motor Func Grossly Intact, Normal Cerebellar Funct, Gait Normal, Memory Normal Skin: Present: Warm, Dry, Normal Color. No: Rashes Psychiatric: Present: Alert, Oriented x 3, Normal Insight, Normal Concentration Medical Decision Making ED Course and Treatment: 12/14/18 17:03 -FS 121 -Atraumatic, laying on the bed and sleeping to me with alcohol on breath. -Will observe the patient until sober 12/14/18 19:25 -Pt. is up walking around with normal gait and posture, hungry and asked for food which we feed her sandwich. Pt. is clinically sobered, request to be discharged, will discharge home. -Pt. stated that she didn't have any fall or trauma, no pain or discomfort, request to be discharged home. Pt. has hand or tongue tremors, no signs of alcohol withdrawal. -Discharge home with education on avoid public intoxication, see your own pmd within 2 days, return to the ER for any new or worsening signs or symptoms. Disposition/Present on Arrival - Present on Arrival Any Indicators Present on Arrival: No History of DVT/PE: No History of Uncontrolled Diabetes: No Urinary Catheter: No History of Decub. Ulcer: No History Surgical Site Infection Following: None - Disposition Have Diagnosis and Disposition been Completed?: Yes Diagnosis: Alcohol abuse Disposition: HOME/ ROUTINE Disposition Time: 19:27 Patient Plan: Discharge Condition: GOOD Additional Instructions: Discharge home with education on avoid public intoxication, see your own pmd within 2 days, return to the ER for any new or worsening signs or symptoms. Referrals: [facility] [place] [Outside] - Follow up with primary Forms: [employer] (Latvian), WORK NOTE
[2018-12-14 17:02] VITALS: RESP 18; O2SAT 99
[2018-12-14 20:44] VITALS: BP 118/72; PULSE 77; TEMP 97.7
== END 2018-12-14 19:50 | disposition home or self-care (01) ==
LOC: ED 16:42
DX: F10.10 Alcohol abuse, uncomplicated (principal)

== ENCOUNTER 2018-12-16 14:00 | Inpatient (IN) | payer OTHER ==
[2018-12-16 14:01] VITALS: BMI 25.0
--- NOTE | 2018-12-16 14:20 | ED PDOC ---
Arrival/HPI - General Time Seen by Provider: 12/16/18 14:17 Historian: Patient - History of Present Illness Narrative History of Present Illness (Text): 12/16/18 14:17 43 y/o female, pmh including DM?, allergic to ziprasidone, biba for etoh intoxication in the public. Pt. is here with the police and ambulance, found etoh in the public with no fall or trauma, transported the patient home which the mother wants the patient to be psychiatrically evaluated as she has been more agitated/frequent alcohol abuse, no mentioning of homicidal/suicidal ideation, no auditory or visual hallucinations. Pt. stated that she feels well with no homicidal/suicidal ideation, no auditory or visual hallucinations, stated that she feels well. Pt. stated that she is just etoh intoxicated, why does she need psychiatric evaluation. Pt. has no abdominal/pelvic pain, no chest pain or palpitation, no numbness or tingling, no rash, no other medical or psychological complaints. Past Medical History - Provider Review Nursing Documentation Reviewed: Yes - Infectious Disease Hx of Infectious Diseases: None - Tetanus Immunization Tetanus Immunization: Unknown - Past Medical History Past Medical History: Unable to Obtain - Cardiac Hx Cardiac Disorders: No - Pulmonary Hx Respiratory Disorders: No - Neurological Hx Neurological Disorder: No - HEENT Hx HEENT Disorder: No - Renal Hx Renal Disorder: No - Endocrine/Metabolic Hx Endocrine Disorders: No - Hematological/Oncological Hx Blood Disorders: No - Integumentary Hx Dermatological Disorder: No - Musculoskeletal/Rheumatological Hx Musculoskeletal Disorders: No - Gastrointestinal Hx Gastrointestinal Disorders: No - Genitourinary/Gynecological Hx Genitourinary Disorders: No - Psychiatric Hx Anxiety: Yes Hx Substance Use: Yes - Past Surgical History Past Surgical History: Unable to Obtain - Anesthesia Hx Anesthesia: No - Suicidal Assessment Feels Threatened In Home Enviroment: No Family/Social History - Physician Review Nursing Documentation Reviewed: Yes Family/Social History: Unknown Family HX Smoking Status: Current Some Days Smoker Hx Alcohol Use: Yes Hx Substance Use: Yes Hx Substance Use Treatment: No Allergies/Home Meds Allergies/Adverse Reactions: Allergies EGG Allergy (Verified 12/17/18 01:08) RASH pineapple Allergy (Verified 12/17/18 01:08) RASH ziprasidone HCl [From Geodon] Adverse Reaction (Verified 12/17/18 01:08) FATIGUE Home Medications: Home Meds Medication Instructions Recorded Confirmed No Known Home Med 12/16/18 12/17/18 Review of Systems - Review of Systems Constitutional: absent: Fatigue, Fevers Eyes: absent: Vision Changes ENT: absent: Hearing Changes Respiratory: absent: SOB, Cough Cardiovascular: absent: Chest Pain Gastrointestinal: absent: Abdominal Pain, Nausea, Vomiting Musculoskeletal: absent: Arthralgias, Back Pain, Neck Pain Skin: absent: Rash, Pruritis Neurological: absent: Headache, Dizziness Psychiatric: absent: Anxiety, Depression, Suicidal Ideation Physical Exam - Systems Exam Head: Present: Atraumatic, Normocephalic, Other (no facial bony tenderness or swelling. ). No: Tenderness, Contusion, Swelling, Ecchymosis, Abrasion, Laceration Pupils: Present: PERRL Extroacular Muscles: Present: EOMI Conjunctiva: Present: Normal Mouth: Present: Moist Mucous Membranes Neck: Present: Normal Range of Motion, Trachea Midline. No: Meningeal Signs, MIDLINE TENDERNESS, Paraspinal Tenderness, Lymphadenopathy Respiratory/Chest: Present: Clear to Auscultation, Good Air Exchange. No: Respiratory Distress, Accessory Muscle Use Cardiovascular: Present: Regular Rate and Rhythm, Normal S1, S2. No: Murmurs Abdomen: No: Tenderness, Distention, Peritoneal Signs, Rebound, Guarding Back: Present: Normal Inspection Upper Extremity: Present: Normal Inspection, Normal ROM, NORMAL PULSES, Neurovascularly Intact, Capillary Refill < 2s. No: Cyanosis, Edema, Tenderness, Swelling, Deformity Lower Extremity: Present: Normal Inspection, NORMAL PULSES, Normal ROM, Neurovascularly Intact, Capillary Refill < 2 s. No: Edema, CALF TENDERNESS, Tenderness, Swelling, Deformity Neurological: Present: GCS=15, CN II-XII Intact, Speech Normal Skin: Present: Warm, Dry, Normal Color. No: Rashes Psychiatric: Present: Alert, Oriented x 3, Normal Insight, Normal Concentration Medical Decision Making ED Course and Treatment: 12/16/18 14:24 -Labs -Chest xray -IV banana bag/fluid -Observe and reassess 12/16/18 16:30 -Urine hcg is negative -Serum hcg is negative -Chest xray: No active disease. -Labs are nonsignificant except potassium 3.4 (potassium chloride 20meq po ordered) -Alcohol 388, will be under 100 by 11pm this evening -UA show no UTI -UDS show no acute findings -Mother/brother request PES to contact them as well as collateral: Brother (nate sutton cell: [phone] or office [phone]) and mother ([phone]) 12/16/18 18:07 -IV banana bag ordered with food given as per patient request. -Pt. is currently evaluated by the PES. 12/16/18 19:40 -Case discussed and endorsed to the incoming PA Sara Norman, discussed about the labs/radiology result, pending for sober which will be around 11pm, and final PES evaluation for possible psychiatric evaluation - RAD Interpretation Radiology Orders: Date of service: 12/16/2018 HISTORY: medical clearance COMPARISON: 06/17/2016 TECHNIQUE: 1 view obtained. FINDINGS: LUNGS: No active pulmonary disease. PLEURA: No significant pleural effusion identified, no pneumothorax apparent. CARDIOVASCULAR: No aortic atherosclerotic calcification present. Normal cardiac size. No pulmonary vascular congestion. OSSEOUS STRUCTURES: No significant abnormalities. VISUALIZED UPPER ABDOMEN: Normal. OTHER FINDINGS: None. IMPRESSION: No active disease. Plunger Shovel Operator: Radiologist - PA / AUTOMOTIVE TIRE TESTING SUPERVISOR / Resident Statement MD/DO has reviewed & agrees with the documentation as recorded. Disposition/Present on Arrival - Present on Arrival Any Indicators Present on Arrival: No History of DVT/PE: No History of Uncontrolled Diabetes: No Urinary Catheter: No History of Decub. Ulcer: No History Surgical Site Infection Following: None - Disposition Have Diagnosis and Disposition been Completed?: Yes Diagnosis: Alcohol intoxication, Anxiety, Alcohol use disorder Disposition: HOSPITALIZED Disposition Time: 19:03 Patient Problems: Current Active Problems Problem Status Onset Alcohol intoxication Acute Anxiety Acute Alcohol use disorder Acute MDD (major depressive disorder) Acute PTSD (post-traumatic stress disorder) Acute Condition: STABLE
[2018-12-16] MEDS ORDERED: Sodium Chloride 0.9% 1,000 ML IV STA (14:35)
[2018-12-16 15:34] LABS: BASO # 0.02 K/mm3 (0.0-2.0); BASO % 0.5 % (0.0-3.0); HEMOGLOBIN 12.1 g/dL (12.0-16.0); LYMPH # 1.4 (1.2-3.4); LYMPH % 34.1 % (22.0-35.0); MEAN CELL VOLUME 91.7 fl (80.0-105.0); MEAN CORPUSCULAR HEMOGLOBIN 30.5 pg (25.0-35.0); MEAN CORPUSCULAR HGB CONC 33.2 g/dl (31.0-37.0); MEAN PLATELET VOLUME 9.1 fl (7.0-11.0); MONO # 0.3 (0.1-0.6); MONO % 7.6 % (1.0-6.0); RBC 3.97 10^6/uL (3.5-6.1); RED CELL DISTRIBUTION WIDTH 13.1 % (11.5-14.5); WHITE BLOOD COUNT 4.2 10^3/uL (4.5-11.0)
[2018-12-16 15:36] LABS: PH,URINE 6.5 (4.7-8.0); URINE BILIRUBIN NEGATIVE (NEGATIVE); URINE BLOOD TRACE-LYSED (NEGATIVE); URINE GLUCOSE (UA) NEGATIVE (NEGATIVE); URINE LEUKOCYTE ESTERASE NEGATIVE Leu/uL (NEGATIVE); URINE PROTEIN NEGATIVE mg/dL (<30 mg/dL); URINE UROBILINOGEN 0.2 E.U./dL (<1 E.U./dL)
[2018-12-16 15:37] LABS: URINE APPEARANCE CLEAR (CLEAR); URINE COLOR YELLOW (YELLOW)
[2018-12-16 15:38] LABS: HCG,QUALITATIVE URINE NEGATIVE (NEGATIVE)
[2018-12-16 15:45] LABS: ACETAMINOPHEN < 10.0 ug/ml (10.0-20.0); SALICYLATE < 1 mg/dL (2.0-20.0)
[2018-12-16 15:47] LABS: ALB/GLOB RATIO 1.3 (1.1-1.8); ALBUMIN 4.1 g/dL (3.0-4.8); ALT/SGPT 71 U/L (7-56); AST/SGOT 192 U/L (14-36); BLOOD UREA NITROGEN 6 mg/dL (7-21); CALCIUM 8.5 mg/dL (8.4-10.5); GFR NON-AFRICAN AMERICAN > 60
[2018-12-16 15:56] LABS: BARBITURATES, UR NEGATIVE (NEGATIVE)
[2018-12-16 16:01] LABS: BENZODIAZEPINES, UR NEGATIVE (NEGATIVE); OPIATES, UR NEGATIVE (NEGATIVE); PHENCYCLIDINE, UR NEGATIVE (NEGATIVE)
--- NOTE | 2018-12-16 16:27 | RAD ---
Date of service: 12/16/2018 HISTORY: medical clearance COMPARISON: 06/17/2016 TECHNIQUE: 1 view obtained. FINDINGS: LUNGS: No active pulmonary disease. PLEURA: No significant pleural effusion identified, no pneumothorax apparent. CARDIOVASCULAR: No aortic atherosclerotic calcification present. Normal cardiac size. No pulmonary vascular congestion. OSSEOUS STRUCTURES: No significant abnormalities. VISUALIZED UPPER ABDOMEN: Normal. OTHER FINDINGS: None. IMPRESSION: No active disease.
--- NOTE | 2018-12-16 19:41 | ED PDOC ---
Physical Exam Vital Signs Reviewed: Yes Vital Signs Temp Pulse Resp BP Pulse Ox 12/16/18 18:01 86 18 120/68 97 12/16/18 14:30 97.8 F 96 H 16 118/78 96 12/16/18 14:01 97.8 F 96 H 16 118/78 96 Temperature: Afebrile Blood Pressure: Normal Pulse: Regular Respiratory Rate: Normal Appearance: Positive for: Non-Toxic, Comfortable Pain Distress: None Mental Status: Positive for: other (Intoxicated) - Systems Exam Head: Present: Atraumatic, Normocephalic Pupils: Present: PERRL Extroacular Muscles: Present: EOMI Conjunctiva: Present: Normal Mouth: Present: Moist Mucous Membranes Neck: Present: Normal Range of Motion Respiratory/Chest: Present: Clear to Auscultation, Good Air Exchange. No: Respiratory Distress, Accessory Muscle Use Cardiovascular: Present: Regular Rate and Rhythm, Normal S1, S2, Peripheal Pulses Present Abdomen: Present: Normal Bowel Sounds. No: Tenderness, Distention, Peritoneal Signs, Rebound, Guarding Upper Extremity: Present: Normal Inspection, Normal ROM, NORMAL PULSES, Neurovascularly Intact, Capillary Refill < 2s. No: Cyanosis, Edema, Temperature Abnormalties Lower Extremity: Present: Normal Inspection, NORMAL PULSES, Normal ROM, Neurovascularly Intact, Capillary Refill < 2 s. No: Edema, Temperature Abnormalties Neurological: Present: GCS=15, Speech Normal Skin: Present: Warm, Dry, Normal Color. No: Rashes Psychiatric: Present: Alert, Intoxicated. No: Suicidal Ideation, Homicidal Ideation Medical Decision Making ED Course and Treatment: 12/16/18 19:39 Patient care endorsed to me by CONTRERAS Persaud, pending PES evaluation at 11pm. EKG ordered to complete medical clearance 12/16/18 22:41 EKG shows NSR at with normal intervals and axis. No STEMI. Nonspecific ST/T wave changes PES evaluated pt, advised that she will be admitted under Dr. Pandey with diagnosis of anxiety and alcohol abuse disorder. Patient updated with change in disposition. Resting comfortably in stretcher with stable vitals at this time. - Lab Interpretations Lab Results: Total Bilirubin 0.2 mg/dL (0.2-1.3) 12/16/18 15:03 AST 192 U/L (14-36) H D 12/16/18 15:03 ALT 71 U/L (7-56) H 12/16/18 15:03 Alkaline Phosphatase 55 U/L (38-126) 12/16/18 15:03 Total Protein 7.3 g/dL (5.8-8.3) 12/16/18 15:03 Albumin 4.1 g/dL (3.0-4.8) 12/16/18 15:03 Globulin 3.2 gm/dL 12/16/18 15:03 Albumin/Globulin Ratio 1.3 (1.1-1.8) 12/16/18 15:03 Urine Color Yellow (YELLOW) 12/16/18 15:03 Urine Appearance Clear (CLEAR) 12/16/18 15:03 Urine pH 6.5 (4.7-8.0) 12/16/18 15:03 Ur Specific [place] <= 1.005 (1.005-1.035) 12/16/18 15:03 Urine Protein Negative mg/dL (<30 mg/dL) 12/16/18 15:03 Urine Glucose (UA) Negative mg/dL (NEGATIVE) 12/16/18 15:03 Urine Ketones Negative mg/dL (NEGATIVE) 12/16/18 15:03 Urine Blood Trace-lysed (NEGATIVE) H 12/16/18 15:03 Urine Nitrate Negative (NEGATIVE) 12/16/18 15: Urine Bilirubin Negative (NEGATIVE) 12/16/18 15:03 Urine Urobilinogen 0.2 E.U./dL (<1 E.U./dL) 12/16/18 15:03 Ur Leukocyte Esterase Negative Danny/uL (NEGATIVE) 12/16/18 15:03 Urine RBC None /hpf (0-2) 12/16/18 15:03 Urine WBC None /hpf (0-6) 12/16/18 15:03 Ur Epithelial Cells None /hpf (0-5) 12/16/18 15:03 Urine HCG, Qual Negative (NEGATIVE) 12/16/18 15:03 Beta HCG, Quant < 2.39 mIU/mL (0-6.15) 12/16/18 15:03 Urine HCG, Qual Negative (NEGATIVE) 12/16/18 15:03 12/16/18 15:03 12/16/18 15:03 Lab Results 12/16/18 15:03: Beta HCG, Quant < 2.39 12/16/18 15:03: Urine Color Yellow, Urine Appearance Clear, Urine pH 6.5, Ur Specific [place] <= 1.005, Urine Protein Negative, Urine Glucose (UA) Negative, Urine Ketones Negative, Urine Blood Trace-lysed H, Urine Nitrate Negative, Urine Bilirubin Negative, Urine Urobilinogen 0.2, Ur Leukocyte Esterase Negative, Urine RBC None, Urine WBC None, Ur Epithelial Cells None, Urine HCG, Qual Negative 12/16/18 15:03: Salicylates < 1 L, Acetaminophen < 10.0 L 12/16/18 15:03: WBC 4.2 L D, RBC 3.97, Hgb 12.1, Hct 36.4, MCV 91.7 D, MCH 30.5, MCHC 33.2, RDW 13.1, Plt Count 194, MPV 9.1, Neut % (Auto) 57.8, Lymph % (Auto) 34.1, [place] % (Auto) 7.6 H, Eos % (Auto) 0.0 L, Baso % (Auto) 0.5, Lymph # (Auto) 1.4, [place] # (Auto) 0.3, Eos # (Auto) 0.0, Baso # (Auto) 0.02, Absolute Neuts (auto) 2.42 12/16/18 15:03: Alcohol, Quantitative 388 H* 12/16/18 15:03: Sodium 142, Potassium 3.4 L, Chloride 104, Carbon Dioxide 24, Anion Gap 17, BUN 6 L, Creatinine 0.4 L, Est GFR ( Amer) > 60, Est GFR (Non-Af Amer) > 60, Random Glucose 92, Calcium 8.5, Magnesium 1.7, Total Bilirubin 0.2, AST 192 H D, ALT 71 H, Alkaline Phosphatase 55, Total Protein 7.3, Albumin 4.1, Globulin 3.2, Albumin/Globulin Ratio 1.3 12/16/18 15:03: Urine Opiates Screen Negative, Urine Methadone Screen Negative, Ur Barbiturates Screen Negative, Ur Phencyclidine Scrn Negative, Ur Amphetamines Screen Negative, U Benzodiazepines Scrn Negative, U Oth Cocaine Metabols Negative, U Cannabinoids Screen Negative I have reviewed the lab results: Yes - RAD Interpretation Radiology Orders: 12/16/18 14:39 CHEST PORTABLE [RAD] Stat - Medication Orders Current Medication Orders: Discontinued Medications Sodium Chloride (Sodium Chloride 0.9%) 1,000 mls @ 999 mls/hr IV .Q1H1M STA Stop: 12/16/18 15:35 Last Admin: 12/16/18 15:18 Dose: 999 mls/hr eMAR Start Stop Document 12/16/18 15:18 SRE (Rec: 12/16/18 15:18 SRE [id number]) Intravenous Solution Start Date 12/16/18 Start Time 15:15 End Date 12/16/18 End time 16:15 Total Infusion Time 60 Disposition/Present on Arrival - Present on Arrival Any Indicators Present on Arrival: No History of DVT/PE: No History of Uncontrolled Diabetes: No Urinary Catheter: No History of Decub. Ulcer: No History Surgical Site Infection Following: None - Disposition Have Diagnosis and Disposition been Completed?: Yes Diagnosis: Alcohol intoxication, Anxiety, Alcohol use disorder Disposition: HOSPITALIZED Disposition Time: 22:42 Patient Plan: Admission Patient Problems: Current Active Problems Problem Status Onset Alcohol abuse Acute Alcohol intoxication Acute Condition: STABLE
[2018-12-17] MEDS ORDERED: Alum-Mag Hydrox-Simethicone Susp (30 mL) PO PRN (00:04)
[2018-12-17] MEDS ORDERED: Magnesium Hydroxide Susp 30 ml UD PO PRN (00:04)
--- NOTE | 2018-12-17 01:43 | PCM.BM ---
<Justice Villafuerte - Last Filed: 12/17/18 01:40> Treatment Plan Problems - Problems identified on initial assessmt Knowledge Deficit: Alcohol Use Date Initiated: 12/17/18 Time Initiated: 01:40 Assessment reference: NA Status: Active Fear Date Initiated: 12/17/18 Time Initiated: 01:40 Assessment reference: NA Status: Active Anxiety Date Initiated: 12/17/18 Time Initiated: 01:41 Assessment reference: NA Status: Active Altered Sleep Patterns Date Initiated: 12/17/18 Time Initiated: 01:41 Assessment reference: NA Status: Active Treatment assets and liabiliti Patient Assests: adapts well, cooperative, self-reliant, ADL independent, negotiates basic needs, cognitively intact Patient Liabilities: financial problems, poor support system, relationship conflicts, substance abuse, medical problems - Milieu Protocol Maintain good personal hygiene: daily Encourage regular showers, daily Remind patient to perform daily oral care, daily Assist patient to perform ADL's Conduct patient checks and document Observation sheet: Q15 minutes Maintain personal safety: every shift Educate patient to report safety concerns to staff, every shift Monitor environment for contraband/sharps Medication safety: Monitor for expected outcome, potential side effects: every shift, Assess barriers to learning: every shift, Assess readiness for medication education: every shift Discharge/Continuing Care - Education Needs Education Needs: Patient Medication, Patient Diagnosis/Disease Process, Patient Coping Skills, Patient Community resources, Patient Activities of Daily Living, Patient Nutrition, Patient Health Practices/Safety, Patient Personal Hygiene /Grooming, Patient Aftercare Safety Plan - Discharge Discharge Criteria: Tolerates medication w/o severe side effects, Free of Suicidal thoughts, Normal sleep pattern, Ability to care for self, No longer exhibiting s/s of withdrawal, Reduction of target symptoms <Katherin Acevedo - Last Filed: 12/17/18 13:27> - Diagnosis (1) MDD (major depressive disorder) Status: Acute Interventions: 12/17/18 13:28 Psychoeducation Psychopharmacology/adjustment of medications as needed/ monitoring possible side effects Evaluate pt on daily basis Compliance with medications and follow up appointments Suicide and homicide risk assessment and prevention Relapse prevention Reduction of symptoms Improve functional status Family involvement As outpatient: cognitive behavioral therapy (2) PTSD (post-traumatic stress disorder) Status: Acute Interventions: 12/17/18 13:28 Psychoeducation Psychopharmacology/adjustment of medications as needed/ monitoring possible side effects Evaluate pt on daily basis Discussion of importance of being compliant with medications and follow up appointments Suicide and homicide risk assessment and prevention, coping strategies, safety plan Reduction of symptoms Relaxation techniques and breathing exercises Improve functional status Family involvement Cognitive behavioral therapy as outpatient (3) Alcohol use disorder Status: Acute Interventions: 12/17/18 13:28 Monitoring withdrawal symptoms Medical detoxification/CIWA protocol Pharmacotherapy for alcohol/benzos/opioid dependence Maintaining sobriety Relapse prevention Possible rehabilitation Motivational interviewing 12-step programs: AA meetings <Rachel Pettit - Last Filed: 12/18/18 10:29> Family Contact Family involvement: Famliy/SO not involved Family contact: Patient declines to allow family contact at present <Jessenia Miranda - Last Filed: 12/18/18 11:38>
[2018-12-17 06:42] LABS: GLUCOSE,FASTING 114 mg/dL (65-110)
[2018-12-17 06:53] LABS: LDL CHOLESTEROL 93 mg/dL (0-129)
[2018-12-17 06:54] LABS: HDL CHOLESTEROL 137 mg/dL (29-60)
--- NOTE | 2018-12-17 08:31 | CP.PCM.CON ---
<Thea Cuello - Last Filed: 12/17/18 11:45> History of Present Illness - History of Present Illness History of Present Illness: CONSULT NOTE FOR DR. IZAIAH Cuello PGY1 43 y/o F with PMHx of ETOH abuse previously intubated, basal cell cancer on R upper chest diagnosed 2 years s/p excision, 2 basal cell lesions on back, rhabdomyolysis, anxiety presented to ED with ETOH intoxication, transferred to psychiatric unit for anxiety and ETOH abuse disorder. Hospitalist service consulted for "medical consult." Overnight resident was paged for nausea, and zofran po was ordered. Upon interview, pt reports continued nausea that was relieved with zofran. She reports she generally this way when she doesn't drink alcohol for a prolonged period of time. She reports dry heaving, without any emesis produced. She reports she isn't currently withdrawing. She is denying suicidal/homicidal ideation. She reports anxiety that has been improved with ativan given to her. She denies fevers, chills, headache, dizziness, chest pain, palpitations, shortness of breath, chest pain, palpitations, shortness of breath, nausea, vomiting, constipation, diarrhea. PMH: Basal cell ca, ETOH abuse, rhabdomyolysis, cervical stenosis All: eggs, pineapple, ziprasidone PSH: LEEP x 4, (2018) for cervical stenoss SH: ETOH 3-4x/week, 8-10 beers/day. Denies tobacco, drug abuse FH: Mother(alive):denies medical history Father(alive): basal cell ca Meds: Orthocyclin 0.25/0.375, Ambien 5mg HS, Xanax 0.5mg qd, Pharmacy: [facility] PMD: Dr. Rivas ([place]), Derm: Dr. Price () Review of Systems - Review of Systems Review of Systems: per HPI Past Patient History - Infectious Disease Hx of Infectious Diseases: None - Tetanus Immunizations Tetanus Immunization: Unknown - Past Medical History & Family History Past Medical History?: No - Past Social History Smoking Status: Current Some Days Smoker - CARDIAC Hx Cardiac Disorders: No - PULMONARY Hx Respiratory Disorders: No - NEUROLOGICAL Hx Seizures: Yes - HEENT Hx HEENT Problems: No - RENAL Hx Chronic Kidney Disease: No - ENDOCRINE/METABOLIC Hx Endocrine Disorders: No - HEMATOLOGICAL/ONCOLOGICAL Hx Blood Disorders: No - INTEGUMENTARY Hx Dermatological Problems: No - MUSCULOSKELETAL/RHEUMATOLOGICAL Hx Musculoskeletal Disorders: No - GASTROINTESTINAL Hx Gastrointestinal Disorders: No - GENITOURINARY/GYNECOLOGICAL Hx Genitourinary Disorders: No - PSYCHIATRIC Hx Anxiety: Yes Hx Substance Use: Yes - SURGICAL HISTORY Hx Surgeries: No - ANESTHESIA Hx Anesthesia: No Meds Allergies/Adverse Reactions: Allergies Allergy/AdvReac Type Severity Reaction Status Date / Time EGG Allergy RASH Verified 12/17/18 01:08 pineapple Allergy RASH Verified 12/17/18 01:08 ziprasidone HCl [From Geodon] AdvReac FATIGUE Verified 12/17/18 01:08 - Medications Medications: Current Medications Acetaminophen (Tylenol 325mg Tab) 650 mg PO Q6H PRN PRN Reason: Pain, moderate (4-7) Al Hydrox/Mg Hydrox/Simethicone (Maalox Plus 30 Ml) 30 ml PO DAILY PRN PRN Reason: Upset Stomach Lorazepam (Ativan) 2 mg PO Q6H [facility]; Protocol Last Admin: 12/17/18 05:34 Dose: 2 mg Magnesium Hydroxide (Milk Of Magnesia) 30 ml PO DAILY PRN PRN Reason: Constipation Zaleplon (Sonata) 10 mg PO HS PRN PRN Reason: Insomnia Physical Exam - Constitutional Appears: Well, Non-toxic, No Acute Distress - Head Exam Head Exam: NORMAL INSPECTION, NORMOCEPHALIC - Eye Exam Eye Exam: EOMI, Normal appearance - ENT Exam ENT Exam: Mucous Membranes Moist, Normal Exam - Neck Exam Neck exam: Positive for: Normal Inspection - Respiratory Exam Respiratory Exam: Clear to Auscultation Bilateral, NORMAL BREATHING PATTERN - Cardiovascular Exam Cardiovascular Exam: Tachycardia, +S1, +S2 - GI/Abdominal Exam GI & Abdominal Exam: Soft. absent: Tenderness - Extremities Exam Extremities exam: Positive for: normal inspection. Negative for: calf tenderness - Back Exam Back exam: NORMAL INSPECTION. absent: CVA tenderness (L), CVA tenderness (R) - Neurological Exam Neurological exam: Alert, Oriented x3 - Psychiatric Exam Psychiatric exam: Anxious, Normal Mood - Skin Skin Exam: Dry, Intact, Warm Results - Vital Signs Recent Vital Signs: Last Vital Signs Temp 97.9 F 12/17/18 07:16 Pulse 59 L 12/17/18 07:16 Resp 20 12/17/18 07:16 BP 142/73 12/17/18 07:16 Pulse Ox 100 12/16/18 23:59 - Labs Result Diagrams: 12/16/18 15:03 12/16/18 15:03 Labs: Laboratory Results - last 24 hr 12/16/18 12/16/18 12/16/18 15:03 15:03 15:03 WBC RBC Hgb Hct MCV MCH MCHC RDW Plt Count MPV Neut % (Auto) Lymph % (Auto) [place] % (Auto) Eos % (Auto) Baso % (Auto) Lymph # (Auto) [place] # (Auto) Eos # (Auto) Baso # (Auto) Absolute Neuts (auto) Sodium 142 Potassium 3.4 L Chloride 104 Carbon Dioxide 24 Anion Gap 17 BUN 6 L Creatinine 0.4 L Est GFR ( Amer) > 60 Est GFR (Non-Af Amer) > 60 Random Glucose 92 Fasting Glucose Calcium 8.5 Magnesium 1.7 Total Bilirubin 0.2 AST 192 H D ALT 71 H Alkaline Phosphatase 55 Total Protein 7.3 Albumin 4.1 Globulin 3.2 Albumin/Globulin Ratio 1.3 Triglycerides Cholesterol LDL Cholesterol Direct HDL Cholesterol TSH 3rd Generation Beta HCG, Quant Urine Color Urine Appearance Urine pH Ur Specific [place] Urine Protein Urine Glucose (UA) Urine Ketones Urine Blood Urine Nitrate Urine Bilirubin Urine Urobilinogen Ur Leukocyte Esterase Urine RBC Urine WBC Ur Epithelial Cells Urine HCG, Qual Salicylates Urine Opiates Screen Negative Urine Methadone Screen Negative Acetaminophen Ur Barbiturates Screen Negative Ur Phencyclidine Scrn Negative Ur Amphetamines Screen Negative U Benzodiazepines Scrn Negative U Oth Cocaine Metabols Negative U Cannabinoids Screen Negative Alcohol, Quantitative 388 H* 12/16/18 12/16/18 12/16/18 15:03 15:03 15:03 WBC 4.2 L D RBC 3.97 Hgb 12.1 Hct 36.4 MCV 91.7 D MCH 30.5 MCHC 33.2 RDW 13.1 Plt Count 194 MPV 9.1 Neut % (Auto) 57.8 Lymph % (Auto) 34.1 [place] % (Auto) 7.6 H Eos % (Auto) 0.0 L Baso % (Auto) 0.5 Lymph # (Auto) 1.4 [place] # (Auto) 0.3 Eos # (Auto) 0.0 Baso # (Auto) 0.02 Absolute Neuts (auto) 2.42 Sodium Potassium Chloride Carbon Dioxide Anion Gap BUN Creatinine Est GFR ( Amer) Est GFR (Non-Af Amer) Random Glucose Fasting Glucose Calcium Magnesium Total Bilirubin AST ALT Alkaline Phosphatase Total Protein Albumin Globulin Albumin/Globulin Ratio Triglycerides Cholesterol LDL Cholesterol Direct HDL Cholesterol TSH 3rd Generation Beta HCG, Quant Urine Color Yellow Urine Appearance Clear Urine pH 6.5 Ur Specific [place] <= 1.005 Urine Protein Negative Urine Glucose (UA) Negative Urine Ketones Negative Urine Blood Trace-lysed H Urine Nitrate Negative Urine Bilirubin Negative Urine Urobilinogen 0.2 Ur Leukocyte Esterase Negative Urine RBC None Urine WBC None Ur Epithelial Cells None Urine HCG, Qual Negative Salicylates < 1 L Urine Opiates Screen Urine Methadone Screen Acetaminophen < 10.0 L Ur Barbiturates Screen Ur Phencyclidine Scrn Ur Amphetamines Screen U Benzodiazepines Scrn U Oth Cocaine Metabols U Cannabinoids Screen Alcohol, Quantitative 12/16/18 12/17/18 12/17/18 15:03 06:00 06:00 WBC RBC Hgb Hct MCV MCH MCHC RDW Plt Count MPV Neut % (Auto) Lymph % (Auto) [place] % (Auto) Eos % (Auto) Baso % (Auto) Lymph # (Auto) [place] # (Auto) Eos # (Auto) Baso # (Auto) Absolute Neuts (auto) Sodium Potassium Chloride Carbon Dioxide Anion Gap BUN Creatinine Est GFR ( Amer) Est GFR (Non-Af Amer) Random Glucose Fasting Glucose 114 H Calcium Magnesium Total Bilirubin AST ALT Alkaline Phosphatase Total Protein Albumin Globulin Albumin/Globulin Ratio Triglycerides 156 Cholesterol 225 H LDL Cholesterol Direct 93 HDL Cholesterol 137 H TSH 3rd Generation 2.67 Beta HCG, Quant < 2.39 Urine Color Urine Appearance Urine pH Ur Specific [place] Urine Protein Urine Glucose (UA) Urine Ketones Urine Blood Urine Nitrate Urine Bilirubin Urine Urobilinogen Ur Leukocyte Esterase Urine RBC Urine WBC Ur Epithelial Cells Urine HCG, Qual Salicylates Urine Opiates Screen Urine Methadone Screen Acetaminophen Ur Barbiturates Screen Ur Phencyclidine Scrn Ur Amphetamines Screen U Benzodiazepines Scrn U Oth Cocaine Metabols U Cannabinoids Screen Alcohol, Quantitative Assessment & Plan - Assessment and Plan (Free Text) Assessment: 43 y/o F with PMH of ETOH abuse, anxiety, basal cell ca admitted to inpatient psychiatry unit for management/treatment of ETOH use disorder and anxiety. Medicine consulted for ETOH withdrawal, nausea/vomiting. Plan: ETOH Withdrawal continue ativan 3Q6 tiago, 2Q6 prn continue thiamine/multivitamin/folic acid counselled on cessation, oncology social worker referral for Alcoholic Anonymous arrangement Nausea/Vomiting Like 2/2 ETOH withdrawal continue zofran 4Q8 prn continue underlying ETOH w/d treatment Hypokalemia Likely 2/2 to vomiting from ETOH withdrawal replete as necessary continue to treat underlying ETOH w/d Transaminitis LFTs indicative of ETOH hepatitis continue ETOH w/d treatment Advised on cessation, outpatient followup with AA, psychiatrist & PMD Anxiety Continue ativan regimen Continue zolpidem HS Continue SSRI Further recs per primary team Case reviewed with attending physician, Dr. Izaiah Cuello PGY1 <Erik Hernandez - Last Filed: 12/17/18 17:54> Meds - Medications Medications: Current Medications Acetaminophen (Tylenol 325mg Tab) 650 mg PO Q6H PRN PRN Reason: Pain, moderate (4-7) Al Hydrox/Mg Hydrox/Simethicone (Maalox Plus 30 Ml) 30 ml PO DAILY PRN PRN Reason: Upset Stomach Folic Acid (Folic Acid) 1 mg PO DAILY [facility] Last Admin: 12/17/18 09:48 Dose: 1 mg Gabapentin (Neurontin) 300 mg PO TID [facility]; Protocol Last Admin: 12/17/18 17:27 Dose: 300 mg Lorazepam (Ativan) 3 mg PO Q6H [facility]; Protocol Last Admin: 12/17/18 15:30 Dose: Not Given Lorazepam (Ativan) 2 mg PO Q6H PRN; Protocol PRN Reason: alcohol withdrawals Last Admin: 12/17/18 17:26 Dose: 2 mg Magnesium Hydroxide (Milk Of Magnesia) 30 ml PO DAILY PRN PRN Reason: Constipation Multivitamins/Minerals (Therapeutic-M Tab) 1 tab PO DAILY [facility] Last Admin: 12/17/18 09:48 Dose: 1 tab Ondansetron HCl (Zofran Odt) 4 mg PO Q8H PRN PRN Reason: Nausea/Vomiting Last Admin: 12/17/18 09:48 Dose: 4 mg Paroxetine HCl (Paxil) 10 mg PO HS [facility] Thiamine HCl (Vitamin B1 Tab) 100 mg PO DAILY [facility] Last Admin: 12/17/18 09:48 Dose: 100 mg Zolpidem Tartrate (Ambien) 5 mg PO HS [facility]; Protocol Results - Vital Signs Recent Vital Signs: Last Vital Signs Temp 97.9 F 12/17/18 07:16 Pulse 92 H 12/17/18 16:00 Resp 20 12/17/18 07:16 BP 127/88 12/17/18 16:00 Pulse Ox 100 12/16/18 23:59 - Labs Result Diagrams: 12/16/18 15:03 12/16/18 15:03 Labs: Laboratory Results - last 24 hr 12/17/18 12/17/18 12/17/18 06:00 06:00 06:00 Fasting Glucose 114 H Triglycerides 156 Cholesterol 225 H LDL Cholesterol Direct 93 HDL Cholesterol 137 H TSH 3rd Generation 2.67 RPR Nonreactive Attending/Attestation - Attestation I have personally seen and examined this patient.: Yes I have fully participated in the care of the patient.: Yes I have reviewed all pertinent clinical information: Yes Notes (Text): 12/17/18 17:47 Attending note; Patient seen and examined with resident in psychiatric floor. Patient is alert and awake. Denies any abdominal pain, nausea, vomiting. Tolerating diet well Still complaining of anxiety and palpitations on and off. Denies any fevers, chills. Denies any urinary, bowel complaints. Patient is a 43-year-old female with PMHx of ETOH abuse, basal cell cancer , rhabdomyolysis, anxiety presented to ED with ETOH intoxication, transferred to psychiatric unit for anxiety and ETOH abuse disorder. 1. Anxiety depression; continue Ativan. 2 chronic alcohol abuse. Complete alcohol cessation is strongly advised. Continue multivitamin, thiamine, folic acid. Advised to follow-up with AA meetings and rehab. pony worker evaluation recommended. 3. nausea and vomiting; resolved now . Continue Zofran as needed. 4. Elevated LFT; continue to chronic alcohol abuse. Monitor closely. 5. Hypokalemia; P.o. potassium supplemented Patient is medically stable. Please reconsult as needed. Patient is advised to follow-up with PMD of choice upon discharge. 12/17/18 17:53
[2018-12-17] MEDS: Multivitamin With Minerals Tab PO SCH (09:48)
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
--- NOTE | 2018-12-17 20:55 | CARD ---
APPROVED REPORT Date of service: 12/16/2018 EKG Measurement Heart [id number] <Conclusion> Normal sinus rhythm Possible Left atrial enlargement Possible Septal infarct, age undetermined CCR Abnormal ECG
[2018-12-18] MEDS: Multivitamin With Minerals Tab PO SCH (09:28)
--- NOTE | 2018-12-18 12:02 | PCM.PYCHPN ---
Psychiatric Progress Note - Psychiatric Progress Note Patient seen today, length of contact: 30min Patient Chief Complaint: "Thank God, I slept..." Problems Identified/Issues Discussed: treatment plan, risk/benefits and alternatives of medications. Medical Problems: see HPI Diagnostic Results: 12/16/18 15:03 12/16/18 15:03 Lab Results 12/17/18 06:00: TSH 3rd Generation 2.67 12/17/18 06:00: Fasting Glucose 114 H, Triglycerides 156, Cholesterol 225 H, LDL Cholesterol Direct 93, HDL Cholesterol 137 H 12/17/18 06:00: RPR Nonreactive 12/16/18 15:03: Beta HCG, Quant < 2.39 12/16/18 15:03: Urine Color Yellow, Urine Appearance Clear, Urine pH 6.5, Ur Specific [place] <= 1.005, Urine Protein Negative, Urine Glucose (UA) Negative, Urine Ketones Negative, Urine Blood Trace-lysed H, Urine Nitrate Negative, Urine Bilirubin Negative, Urine Urobilinogen 0.2, Ur Leukocyte Esterase Negative, Urine RBC None, Urine WBC None, Ur Epithelial Cells None, Urine HCG, Qual Negative 12/16/18 15:03: Salicylates < 1 L, Acetaminophen < 10.0 L 12/16/18 15:03: WBC 4.2 L D, RBC 3.97, Hgb 12.1, Hct 36.4, MCV 91.7 D, MCH 30.5, MCHC 33.2, RDW 13.1, Plt Count 194, MPV 9.1, Neut % (Auto) 57.8, Lymph % (Auto) 34.1, [place] % (Auto) 7.6 H, Eos % (Auto) 0.0 L, Baso % (Auto) 0.5, Lymph # (Auto) 1.4, [place] # (Auto) 0.3, Eos # (Auto) 0.0, Baso # (Auto) 0.02, Absolute Neuts (auto) 2.42 12/16/18 15:03: Alcohol, Quantitative 388 H* 12/16/18 15:03: Sodium 142, Potassium 3.4 L, Chloride 104, Carbon Dioxide 24, Anion Gap 17, BUN 6 L, Creatinine 0.4 L, Est GFR ( Amer) > 60, Est GFR (Non-Af Amer) > 60, Random Glucose 92, Calcium 8.5, Magnesium 1.7, Total Bilirubin 0.2, AST 192 H D, ALT 71 H, Alkaline Phosphatase 55, Total Protein 7.3, Albumin 4.1, Globulin 3.2, Albumin/Globulin Ratio 1.3 12/16/18 15:03: Urine Opiates Screen Negative, Urine Methadone Screen Negative, Ur Barbiturates Screen Negative, Ur Phencyclidine Scrn Negative, Ur Amphetamines Screen Negative, U Benzodiazepines Scrn Negative, U Oth Cocaine Metabols Negative, U Cannabinoids Screen Negative Vital Signs Temp Pulse Resp BP Pulse Ox 12/18/18 07:08 98.0 F 99 H 20 126/69 12/18/18 07:06 98.0 F 99 H 20 136/69 12/17/18 16:00 92 H 127/88 12/17/18 07:16 97.9 F 59 L 20 142/73 12/16/18 23:59 98.4 F 92 H 20 158/94 H 100 12/16/18 18:01 86 18 120/68 97 12/16/18 14:30 97.8 F 96 H 16 118/78 96 12/16/18 14:01 97.8 F 96 H 16 118/78 96 DSM 5 Symptoms Update: Patient was seen today at the treatment team meeting, patient presented with some improvement of personal hygiene, obviously anxious, easily tearful, pt reported that she has feeling of hopelessness and low self esteem. has withdrawal symptoms from alcohol, upper extremity tremor, but some improvement, pt is on CIWA protocol. pt got 12mg of ativan yesterday. pt still presented to be depressed and hopeless. Patient denied hearing voices, denied seeing things, denied paranoid ideation. Patient denied smoking, denied other drug use. as per staff, pt is crying very easily, trying her best to attend groups. so far pt tolerates meds well, no side effects observed or reported, AIMS 0, no EPS. Impression: DSM 5 Diagnosis: Rule out major depressive disorder Rule out adjustment disorder with depressed and anxious mood Rule out substance-induced mood disorder Rule out PTSD Rule out substance-induced anxiety Alcohol use disorder Alcohol withdrawal symptoms Medication Change: No Medical Record Reviewed: Yes Consults ordered or reviewed: pt was seen by medical team, please see consult note for more detailed information. . Mental Status Examination - Cognitive Function Orientation: Person, Place, Situation, Time Attention: Poor Concentration: Poor Association: WNL Fund of Knowledge: WNL - Mood Mood: Depressed, Anxious - Affect Affect: Constricted (And tearful) - Formal Thought Process Formal Thought Process: No Impairment - Suicidal Ideation Suicidal Ideation: No - Homicidal Ideation Homicidal Ideation: No Goal/Treatment Plan - Goal/Treatment Plan Need for Continued Stay: Remain at risks for inpatient hospitalization, Severe depression anxiety, Discharge may exacerbated symptoms, Severe functional impairment Progress Toward Problem(s) and Goals/Treatment Plan: Milieu/structure/supportive therapy SW consultation for discharge plan and social issues, possible inpatient rehab, but patient expressed no interest Med management: Paxil 10 mg at the nighttime for depression and anxiety Ambien 5 mg at the nighttime as needed for insomnia Neurontin 300 mg 3 times a day for cravings and mood stabilization Multivitamins, thiamine, folic acid Ativan 3 mg 4 times a day, for alcohol withdrawal symptoms CIWA protocol Family involvement Follow up on labs Will monitor closely Pt was educated about risk/benefits and alternatives of medications, coping strategies (safety plan, suicide prevention), relapse prevention, importance of follow up with psychiatrist and therapist, stay away from drugs/alcohol/smoking Estimated Date of D/C: 12/23/18
[2018-12-19] MEDS: Multivitamin With Minerals Tab PO SCH (08:50)
[2018-12-20] MEDS: Multivitamin With Minerals Tab PO SCH (08:49)
--- NOTE | 2018-12-20 11:02 | PCM.PYCHPN ---
Psychiatric Progress Note - Psychiatric Progress Note Patient seen today, length of contact: 30min Patient Chief Complaint: "I feel little better, but my anxiety is out of control, my allergy is bothering me..." Problems Identified/Issues Discussed: treatment plan, risk/benefits and alternatives of medications. Medical Problems: see HPI Diagnostic Results: 12/16/18 15:03 12/16/18 15:03 Lab Results 12/17/18 06:00: TSH 3rd Generation 2.67 12/17/18 06:00: Fasting Glucose 114 H, Triglycerides 156, Cholesterol 225 H, LDL Cholesterol Direct 93, HDL Cholesterol 137 H 12/17/18 06:00: RPR Nonreactive 12/16/18 15:03: Beta HCG, Quant < 2.39 12/16/18 15:03: Urine Color Yellow, Urine Appearance Clear, Urine pH 6.5, Ur Specific [place] <= 1.005, Urine Protein Negative, Urine Glucose (UA) Negative, Urine Ketones Negative, Urine Blood Trace-lysed H, Urine Nitrate Negative, Urine Bilirubin Negative, Urine Urobilinogen 0.2, Ur Leukocyte Esterase Negative, Urine RBC None, Urine WBC None, Ur Epithelial Cells None, Urine HCG, Qual Negative 12/16/18 15:03: Salicylates < 1 L, Acetaminophen < 10.0 L 12/16/18 15:03: WBC 4.2 L D, RBC 3.97, Hgb 12.1, Hct 36.4, MCV 91.7 D, MCH 30.5, MCHC 33.2, RDW 13.1, Plt Count 194, MPV 9.1, Neut % (Auto) 57.8, Lymph % (Auto) 34.1, Jack % (Auto) 7.6 H, Eos % (Auto) 0.0 L, Baso % (Auto) 0.5, Lymph # (Auto) 1.4, Jack # (Auto) 0.3, Eos # (Auto) 0.0, Baso # (Auto) 0.02, Absolute Neuts (auto) 2.42 12/16/18 15:03: Alcohol, Quantitative 388 H* 12/16/18 15:03: Sodium 142, Potassium 3.4 L, Chloride 104, Carbon Dioxide 24, Anion Gap 17, BUN 6 L, Creatinine 0.4 L, Est GFR ( Amer) > 60, Est GFR (Non-Af Amer) > 60, Random Glucose 92, Calcium 8.5, Magnesium 1.7, Total Bilirubin 0.2, AST 192 H D, ALT 71 H, Alkaline Phosphatase 55, Total Protein 7.3, Albumin 4.1, Globulin 3.2, Albumin/Globulin Ratio 1.3 12/16/18 15:03: Urine Opiates Screen Negative, Urine Methadone Screen Negative, Ur Barbiturates Screen Negative, Ur Phencyclidine Scrn Negative, Ur Amphetamines Screen Negative, U Benzodiazepines Scrn Negative, U Oth Cocaine Metabols Ne gative, U Cannabinoids Screen Negative Vital Signs Temp Pulse Resp BP Pulse Ox 12/18/18 07:08 98.0 F 99 H 20 126/69 12/18/18 07:06 98.0 F 99 H 20 136/69 12/17/18 16:00 92 H 127/88 12/17/18 07:16 97.9 F 59 L 20 142/73 12/16/18 23:59 98.4 F 92 H 20 158/94 H 100 12/16/18 18:01 86 18 120/68 97 12/16/18 14:30 97.8 F 96 H 16 118/78 96 12/16/18 14:01 97.8 F 96 H 16 118/78 96 DSM 5 Symptoms Update: Patient was seen today at the treatment team meeting, patient presented with nya e improvement of personal hygiene, obviously anxious, easily tearful, pt reported that she has feeling of hopelessness and low self esteem. has withdrawal symptoms from alcohol, upper extremity tremor, but some improvement, pt is on CIWA protocol. pt got 9mg of ativan yesterday. pt still presented to be depressed and hopeless. Patient denied hearing voices, denied seeing things, denied paranoid ideation. Patient denied smoking, denied other drug use. as per staff, pt is crying very easily, trying her best to attend groups. so far pt tolerates meds well, no side effects observed or reported, AIMS 0, no EPS. Impression: DSM 5 Diagnosis: Rule out major depressive disorder Rule out adjustment disorder with depressed and anxious mood Rule out substance-induced mood disorder Rule out PTSD Rule out substance-induced anxiety Alcohol use disorder Alcohol withdrawal symptoms Medication Change: Yes (celexa increased) Medical Record Reviewed: Yes Mental Status Examination - Cognitive Function Orientation: Person, Place, Situation, Time Attention: Poor Concentration: Poor Association: WNL Fund of Knowledge: WNL - Mood Mood: Depressed, Anxious - Affect Affect: Constricted (And tearful) - Formal Thought Process Formal Thought Process: No Impairment - Suicidal Ideation Suicidal Ideation: No - Homicidal Ideation Homicidal Ideation: No Goal/Treatment Plan - Goal/Treatment Plan Need for Continued Stay: Remain at risks for inpatient hospitalization, Severe depression anxiety, Discharge may exacerbated symptoms, Severe functional impairment Progress Toward Problem(s) and Goals/Treatment Plan: Milieu/structure/supportive therapy SW consultation for discharge plan and social issues, possible inpatient rehab, but patient expressed no interest Med management: Paxil 20 mg at the nighttime for depression and anxiety Ambien 5 mg at the nighttime as needed for insomnia Neurontin 300 mg 3 times a day for cravings and mood stabilization Multivitamins, thiamine, folic acid Ativan 3 mg 4 times a day, for alcohol withdrawal symptoms WA protocol Family involvement Follow up on labs Will monitor closely Pt was educated about risk/benefits and alternatives of medications, coping strategies (safety plan, suicide prevention), relapse prevention, importance of follow up with psychiatrist and therapist, stay away from drugs/alcohol/smoking Estimated Date of D/C: 12/23/18
--- NOTE | 2018-12-20 14:58 | PCM.PYCHPN ---
Psychiatric Progress Note - Psychiatric Progress Note Patient seen today, length of contact: 30min Patient Chief Complaint: "I feel little better, do you know approximately when I will be going home?" Problems Identified/Issues Discussed: treatment plan, risk/benefits and alternatives of medications. Medical Problems: see HPI Diagnostic Results: 12/16/18 15:03 12/16/18 15:03 Lab Results 12/17/18 06:00: TSH 3rd Generation 2.67 12/17/18 06:00: Fasting Glucose 114 H, Triglycerides 156, Cholesterol 225 H, LDL Cholesterol Direct 93, HDL Cholesterol 137 H 12/17/18 06:00: RPR Nonreactive 12/16/18 15:03: Beta HCG, Quant < 2.39 12/16/18 15:03: Urine Color Yellow, Urine Appearance Clear, Urine pH 6.5, Ur Specific [place] <= 1.005, Urine Protein Negative, Urine Glucose (UA) Negative, Urine Ketones Negative, Urine Blood Trace-lysed H, Urine Nitrate Negative, Urine Bilirubin Negative, Urine Urobilinogen 0.2, Ur Leukocyte Esterase Negative, Urine RBC None, Urine WBC None, Ur Epithelial Cells None, Urine HCG, Qual Negative 12/16/18 15:03: Salicylates < 1 L, Acetaminophen < 10.0 L 12/16/18 15:03: WBC 4.2 L D, RBC 3.97, Hgb 12.1, Hct 36.4, MCV 91.7 D, MCH 30.5, MCHC 33.2, RDW 13.1, Plt Count 194, MPV 9.1, Neut % (Auto) 57.8, Lymph % (Auto) 34.1, Clark % (Auto) 7.6 H, Eos % (Auto) 0.0 L, Baso % (Auto) 0.5, Lymph # (Auto) 1.4, [place] # (Auto) 0.3, Eos # (Auto) 0.0, Baso # (Auto) 0.02, Absolute Neuts (auto) 2.42 12/16/18 15:03: Alcohol, Quantitative 388 H* 12/16/18 15:03: Sodium 142, Potassium 3.4 L, Chloride 104, Carbon Dioxide 24, Anion Gap 17, BUN 6 L, Creatinine 0.4 L, Est GFR ( Amer) > 60, Est GFR (Non-Af Amer) > 60, Random Glucose 92, Calcium 8.5, Magnesium 1.7, Total Bilirubin 0.2, AST 192 H D, ALT 71 H, Alkaline Phosphatase 55, Total Protein 7.3, Albumin 4.1, Globulin 3.2, Albumin/Globulin Ratio 1.3 12/16/18 15:03: Urine Opiates Screen Negative, Urine Methadone Screen Negative, Ur Barbiturates Screen Negative, Ur Phencyclidine Scrn Negative, Ur Amphetamines Screen Negative, U Benzodiazepines Scrn Negative, U Oth Cocaine Metabols Negative, U Cannabinoids Screen Negative Vital Signs Temp Pulse Resp BP Pulse Ox 12/18/18 07:08 98.0 F 99 H 20 126/69 12/18/18 07:06 98.0 F 99 H 20 136/69 12/17/18 16:00 92 H 127/88 12/17/18 07:16 97.9 F 59 L 20 142/73 12/16/18 23:59 98.4 F 92 H 20 158/94 H 100 12/16/18 18:01 86 18 120/68 97 12/16/18 14:30 97.8 F 96 H 16 118/78 96 12/16/18 14:01 97.8 F 96 H 16 118/78 96 DSM 5 Symptoms Update: Patient was seen today at the treatment team meeting, patient presented with some improvement of personal hygiene, obviously anxious, easily tearful, pt reported that she has feeling of hopelessness and low self esteem. has withdrawal symptoms from alcohol, upper extremity tremor, but some improvement, will start tapering ativan. pt still presented to be depressed and hopeless, no motivation. As per collateral information from family, patient's parents are afraid of her and patient is not welcome back home, apparently patient is homeless, patient does not want to be referred to inpatient rehab Patient denied hearing voices, denied seeing things, denied paranoid ideation. Patient denied smoking, denied other drug use. as per staff, pt is crying very easily, trying her best to attend groups. so far pt tolerates meds well, no side effects observed or reported, AIMS 0, no EPS. Impression: DSM 5 Diagnosis: Rule out major depressive disorder Rule out adjustment disorder with depressed and anxious mood Rule out substance-induced mood disorder Rule out PTSD Rule out substance-induced anxiety Alcohol use disorder Alcohol withdrawal symptoms Medication Change: Yes (Ativan decreased) Medical Record Reviewed: Yes Consults ordered or reviewed: pt was seen by medical team, please see consult note for more detailed information. . Mental Status Examination - Cognitive Function Orientation: Person, Place, Situation, Time Attention: Poor Concentration: Poor Association: WNL Fund of Knowledge: WNL - Mood Mood: Depressed (And hopeless), Anxious - Affect Affect: Constricted (And tearful) - Formal Thought Process Formal Thought Process: No Impairment - Suicidal Ideation Suicidal Ideation: No - Homicidal Ideation Homicidal Ideation: No Goal/Treatment Plan - Goal/Treatment Plan Need for Continued Stay: Remain at risks for inpatient hospitalization, Severe depression anxiety, Discharge may exacerbated symptoms, Severe functional impairment Progress Toward Problem(s) and Goals/Treatment Plan: Milieu/structure/supportive therapy SW consultation for discharge plan and social issues, possible inpatient rehab, but patient expressed no interest Med management: Paxil 20 mg at the nighttime for depression and anxiety Ambien 5 mg at the nighttime as needed for insomnia Neurontin 300 mg 3 times a day for cravings and mood stabilization Multivitamins, thiamine, folic acid Ativan 3 mg 3 times a day, with a plan to wean it off Family involvement Follow up on labs Will monitor closely Pt was educated about risk/benefits and alternatives of medications, coping strategies (safety plan, suicide prevention), relapse prevention, importance of follow up with psychiatrist and therapist, stay away from drugs/alcohol/smoking Estimated Date of D/C: 12/23/18
[2018-12-21] MEDS: Multivitamin With Minerals Tab PO SCH (08:47)
--- NOTE | 2018-12-21 10:39 | PCM.PYCHPN ---
Psychiatric Progress Note - Psychiatric Progress Note Patient seen today, length of contact: 30min Problems Identified/Issues Discussed: I reviewed assessment and recent notes. Patient continues to be depressed with poor energy and motivation. She tells me that she is getting better however her affect is constricted and apathetic. Endorsed feelings of hopelessness and low self esteem during treatment team meeting on Sunday. Presently patient denies hallucinations, SI or new concerns. Sleep was restless due to intermittent clanking noise from radiator (this noise which was noted to be a nuisance during my own interview with her). Though process is coherent without evidence of psychosis. Well-oriented to circumstances. Staff note that patient has been more visible and interactive with peers. There were no behavioral issues overnight. Diagnostic Results: Rule out major depressive disorder Rule out adjustment disorder with depressed and anxious mood Rule out substance-induced mood disorder Rule out PTSD Rule out substance-induced anxiety Alcohol use disorder Alcohol withdrawal symptoms Medication Change: Yes (Ativan decreased) Medical Record Reviewed: Yes Mental Status Examination - Cognitive Function Orientation: Person, Place, Situation, Time Attention: WNL Concentration: Poor Association: WNL Fund of Knowledge: WNL - Mood Mood: Depressed (And hopeless), Anxious - Affect Affect: Constricted (And tearful) - Formal Thought Process Formal Thought Process: No Impairment - Suicidal Ideation Suicidal Ideation: No - Homicidal Ideation Homicidal Ideation: No Goal/Treatment Plan - Goal/Treatment Plan Need for Continued Stay: Remain at risks for inpatient hospitalization, Severe depression anxiety, Discharge may exacerbated symptoms, Severe functional impairment Progress Toward Problem(s) and Goals/Treatment Plan: * group, milieu and supportive tx * Neurontin 300 mg po TID * Paxil 20 mg po HS * Ambien 5 mg po HS for insomnia * Ativan 3 mg po three times daily, decreased to 3 mg AM, 2 mg PM and 3 mg HS on 12/21/18. Continue to taper as tolerated * Vitals reviewed and noted below: Selected Entries 12/20/18 12/20/18 07:34 16:00 Temperature 97.8 F Pulse Rate 76 91 H Respiratory 18 Rate Blood Pressure 83/61 L 121/87 Estimated Date of D/C: 12/23/18
[2018-12-22] MEDS: Multivitamin With Minerals Tab PO SCH (09:03)
--- NOTE | 2018-12-22 11:05 | PCM.PYCHPN ---
Psychiatric Progress Note - Psychiatric Progress Note Patient seen today, length of contact: 30min Problems Identified/Issues Discussed: I reviewed assessment and recent notes. Patient continues to be depressed with bouts of lability and anxiety but has reported to me and staff that her mood is improving. She endorsed feelings of hopelessness and low self esteem during treatment team meeting on Sunday and had episodes of anxiety/panic during the day on Sunday. Apparently she became emotional/tearful after speaking to relatives over the phone. She refused vistaril because it can make her "hyper". Presently patient denies hallucinations, SI or new concerns. Sleep was much improved since she slept in the quiet room since it was cooler and quieter than her assigned room. She seems more rested and calm this morning with greater range. Though process is coherent without evidence of psychosis and patient remains well-oriented to circumstances. Staff note that patient has been more visible and interactive with peers. There were no behavioral issues over the weekend. Diagnostic Results: Rule out major depressive disorder Rule out adjustment disorder with depressed and anxious mood Rule out substance-induced mood disorder Rule out PTSD Rule out substance-induced anxiety Alcohol use disorder Alcohol withdrawal symptoms Medication Change: Yes (Ativan decreased) Medical Record Reviewed: Yes Mental Status Examination - Cognitive Function Orientation: Person, Place, Situation, Time Attention: WNL Concentration: Poor Association: WNL Fund of Knowledge: WNL - Mood Mood: Depressed (improving), Anxious - Affect Affect: Constricted (greater range, still labile) - Speech Speech: Appropriate - Formal Thought Process Formal Thought Process: No Impairment - Suicidal Ideation Suicidal Ideation: No - Homicidal Ideation Homicidal Ideation: No Goal/Treatment Plan - Goal/Treatment Plan Need for Continued Stay: Remain at risks for inpatient hospitalization, Severe depression anxiety, Discharge may exacerbated symptoms, Severe functional impairment Progress Toward Problem(s) and Goals/Treatment Plan: * group, milieu and supportive tx * Neurontin 300 mg po TID * Paxil 20 mg po HS * Ambien 5 mg po HS for insomnia * Ativan 3 mg po three times daily, decreased to 3 mg AM, 2 mg PM and 3 mg HS on 12/21/18 and then to 2 mg po bid and 3 mg po HS on 12/22/18. I reviewed the side effects of benzos and need for taper with patient at bedside on 12/22/18. Angelo continue to taper as tolerated * Vitals reviewed and noted below: Selected Entries 12/21/18 12/21/18 07:00 16:20 Temperature 97.9 F Pulse Rate 71 77 Respiratory 18 Rate Blood Pressure 113/74 135/96 H Estimated Date of D/C: 12/23/18
[2018-12-23] MEDS: Multivitamin With Minerals Tab PO SCH (08:40)
--- NOTE | 2018-12-23 09:04 | PCM.PYCHPN ---
Psychiatric Progress Note - Psychiatric Progress Note Patient seen today, length of contact: 30min Problems Identified/Issues Discussed: I reviewed assessment and recent notes. I met with patient at bedside this morning, she reports that she remains depressed, wayne and unhappy with poor energy and motivation. There has been some improvement but she still has bouts of helplessness and hopelessness. She had endorsed feelings of hopelessness and low self esteem during treatment team meeting on Sunday.Today she reports interest in a 21 day rehab for further treatment of her alcohol addiction. Thus far she is tolerating her medications, including taper of ativan. Denies any new discomfort or pain. Presently patient denies hallucinations, SI or new concerns. Sleep was restless due to intermittent clanking noise from radiator again (this noise which was noted to be a nuisance during my own interview with her). Though process is coherent without evidence of psychosis. Well-oriented to circumstances. Staff note that patient has been more visible and interactive with peers. There were no behavioral issues overnight. Diagnostic Results: Rule out major depressive disorder Rule out adjustment disorder with depressed and anxious mood Rule out substance-induced mood disorder Rule out PTSD Rule out substance-induced anxiety Alcohol use disorder Alcohol withdrawal symptoms Medication Change: Yes (Ativan decreased) Medical Record Reviewed: Yes Mental Status Examination - Cognitive Function Orientation: Person, Place, Situation, Time Attention: WNL Concentration: Poor Association: WNL Fund of Knowledge: WNL - Mood Mood: Depressed (And hopeless), Anxious - Affect Affect: Constricted (And tearful) - Speech Speech: Appropriate - Formal Thought Process Formal Thought Process: No Impairment - Suicidal Ideation Suicidal Ideation: No - Homicidal Ideation Homicidal Ideation: No Goal/Treatment Plan - Goal/Treatment Plan Need for Continued Stay: Remain at risks for inpatient hospitalization, Severe depression anxiety, Discharge may exacerbated symptoms, Severe functional impairment Progress Toward Problem(s) and Goals/Treatment Plan: * group, milieu and supportive tx * Neurontin 300 mg po TID * Paxil 20 mg po HS * Ambien 5 mg po HS for insomnia * Ativan 3 mg po three times daily, decreased to 3 mg AM, 2 mg PM and 3 mg HS on 12/21/18 and then to 2 mg po bid and 3 mg po HS on 12/22/18 and then to 2/2/2 on 12/23/18. I reviewed the side effects of benzos and need for taper with patient at bedside on 12/22/18. Will continue to taper as tolerated * Vitals reviewed and noted below: Selected Entries 12/22/18 12/22/18 07:21 16:26 Temperature 98.1 F Pulse Rate 76 87 Respiratory 20 Rate Blood Pressure 118/83 129/88 * Spoke with patient's brother, Dr. Rikki Whitney [phone] (patient gave consent during tx team meeting) on 12/23/18 regarding patient's history, pr ogress, recommendations and medications as well as diagnosis. Estimated Date of D/C: 12/23/18
[2018-12-23 18:54] VITALS: O2SAT 99
--- NOTE | 2018-12-24 08:46 | PCM.PYCHPN ---
Psychiatric Progress Note - Psychiatric Progress Note Patient seen today, length of contact: 30min Problems Identified/Issues Discussed: I reviewed assessment and recent notes. I met with patient at bedside this morning, she reports that she is slowly feeling better. She had a productive conversation with her family yesterday. Seems more motivated for sobriety. Her affect is a little brighter and more reactive. Expresses appreciation for her family's concern and her treatment thus far. Patient is still committed to attending a 21 day rehab for further treatment of her alcohol addiction. Thus far she is tolerating her medications, including taper of ativan. Denies any new discomfort or pain. Presently patient denies hallucinations, SI or new concerns. Thought process is coherent without evidence of psychosis. Well-oriented to circumstances. Staff note that patient has been more visible and interactive with peers. There were no behavioral issues overnight. I/J are improving Diagnostic Results: Rule out major depressive disorder Rule out adjustment disorder with depressed and anxious mood Rule out substance-induced mood disorder Rule out PTSD Rule out substance-induced anxiety Alcohol use disorder Alcohol withdrawal symptoms Medication Change: Yes (Ativan decreased) Medical Record Reviewed: Yes Mental Status Examination - Cognitive Function Orientation: Person, Place, Situation, Time Attention: WNL Concentration: Poor Association: WNL Fund of Knowledge: WNL - Mood Mood: Depressed (And hopeless), Anxious - Affect Affect: Constricted (And tearful) - Speech Speech: Appropriate - Formal Thought Process Formal Thought Process: No Impairment - Suicidal Ideation Suicidal Ideation: No - Homicidal Ideation Homicidal Ideation: No Goal/Treatment Plan - Goal/Treatment Plan Need for Continued Stay: Remain at risks for inpatient hospitalization, Severe depression anxiety, Discharge may exacerbated symptoms, Severe functional imp airment Progress Toward Problem(s) and Goals/Treatment Plan: * group, milieu and supportive tx * Neurontin 300 mg po TID * Paxil 20 mg po HS * Ambien 5 mg po HS for insomnia * Ativan 3 mg po three times daily, decreased to 3 mg AM, 2 mg PM and 3 mg HS on 12/21/18 and then to 2 mg po bid and 3 mg po HS on 12/22/18 and then to 2/2/2 on 12/23/18 and further decreased to 2/1/2 on 12/24/18. ~ I reviewed the side effects of benzos and need for taper with patient at bedside on 12/22/18. Will continue to taper as tolerated * Vitals reviewed and noted below: Selected Entries 12/23/18 12/23/18 12/23/18 07:26 16:00 18:49 Temperature 97.9 F 97.2 F L Pulse Rate 68 105 H 91 H Respiratory 16 Rate Blood Pressure 109/70 145/82 128/89 * Spoke with patient's brother, Dr. Rikki Whitney [phone] (patient gave consent during tx team meeting) on 12/23/18 regarding patient's history, progress, recommendations and medications as well as diagnosis. Estimated Date of D/C: 12/23/18
[2018-12-24] MEDS: Multivitamin With Minerals Tab PO SCH (09:49)
[2018-12-25 07:19] VITALS: RESP 20; TEMP 98
[2018-12-25] MEDS: Multivitamin With Minerals Tab PO SCH (08:37)
--- NOTE | 2018-12-25 11:16 | PCM.PYCHPN ---
Psychiatric Progress Note - Psychiatric Progress Note Patient seen today, length of contact: 30min Problems Identified/Issues Discussed: I reviewed assessment and recent notes. I met with patient at bedside again this morning, she reports that she is slowly feeling better. Grooming is improving. She had a productive conversation with her family on Sunday. Seems more motivated for sobriety. Her affect is a little brighter and more reactive. Expresses appreciation for her family's concern and her treatment thus far. Patient is still committed to attending a 21 day rehab for further treatment of her alcohol addiction and has been discussing different options with SW. Thus far she is tolerating her medications, including taper of ativan. Denies any new discomfort or pain. Presently patient denies hallucinations, SI or new concerns. Thought process is coherent without evidence of psychosis. Well-oriented to circumstances. Staff note that patient has been more visible and interactive with peers. There were no behavioral issues over the week thus far. I/J are improving Diagnostic Results: Rule out major depressive disorder Rule out adjustment disorder with depressed and anxious mood Rule out substance-induced mood disorder Rule out PTSD Rule out substance-induced anxiety Alcohol use disorder Alcohol withdrawal symptoms Medication Change: Yes (Ativan decreased) Medical Record Reviewed: Yes Mental Status Examination - Cognitive Function Orientation: Person, Place, Situation, Time Attention: WNL Concentration: WNL Association: WNL Fund of Knowledge: WNL - Mood Mood: Depressed (improving), Anxious - Affect Affect: Constricted (increased reactivity and spontaneity) - Speech Speech: Appropriate - Formal Thought Process Formal Thought Process: No Impairment - Suicidal Ideation Suicidal Ideation: No - Homicidal Ideation Homicidal Ideation: No Goal/Treatment Plan - Goal/Treatment Plan Need for Continued Stay: Remain at risks for inpatient hospitalization, Severe depression anxiety, Discharge may exacerbated symptoms, Severe functional impairment Progress Toward Problem(s) and Goals/Treatment Plan: * group, milieu and supportive tx * Neurontin 300 mg po TID * Paxil 20 mg po HS * Ambien 5 mg po HS for insomnia * Ativan 3 mg po three times daily, decreased to 3 mg AM, 2 mg PM and 3 mg HS on 12/21/18 and then to 2 mg po bid and 3 mg po HS on 12/22/18 and then to 2/2/2 on 12/23/18 and further decreased to 2/1/2 on 12/24/18 and then to 1/1/2 on 12/25/18. ~ I reviewed the side effects of benzos and need for taper with patient at bedside on 12/22/18. Will continue to taper as tolerated * Vitals reviewed and noted below: Selected Entries 12/23/18 12/24/18 12/24/18 18:49 07:00 16:00 Temperature 97.2 F L 97.9 F Pulse Rate 91 H 73 74 Respiratory 16 18 Rate Blood Pressure 128/89 99/62 L 124/85 * Spoke with patient's brother, Dr. Rikki Whitney [phone] (patient gave consent during tx team meeting) on 12/23/18 regarding patient's history, progress, recommendations and medications as well as diagnosis. Estimated Date of D/C: 12/23/18
--- NOTE | 2018-12-26 09:10 | PCM.PYCHPN ---
Psychiatric Progress Note - Psychiatric Progress Note Patient seen today, length of contact: 25 min Problems Identified/Issues Discussed: I reviewed assessment and recent notes. I met with patient at bedside again this morning, she continues to report that she is feeling better. Grooming is imp roving and patient remains well oriented to month, year, location and circumstances. Affect is brighter and more reactive and she seems more motivated for sobriety. Expresses appreciation for her family's concern and her treatment thus far. Patient is still committed to attending a 21 day rehab for further treatment of her alcohol addiction and has been discussing different options with SW. Thus far she is tolerating her medications, including taper of ativan. Denies any new discomfort or pain. Sleep was little more restless in the last couple of nights. Presently patient denies hallucinations, SI or new concerns. Thought process is coherent without evidence of psychosis. Staff note that patient has been more visible and interactive with peers. Seen smiling and joking around. There were no behavioral issues over the week thus far. I/J are improving Diagnostic Results: Rule out major depressive disorder Rule out adjustment disorder with depressed and anxious mood Rule out substance-induced mood disorder Rule out PTSD Rule out substance-induced anxiety Alcohol use disorder Alcohol withdrawal symptoms Medication Change: Yes (Ativan decreased) Medical Record Reviewed: Yes Mental Status Examination - Cognitive Function Orientation: Person, Place, Situation, Time Attention: WNL Concentration: WNL Association: WNL Fund of Knowledge: WNL - Mood Mood: Depressed (improving), Anxious - Affect Affect: Constricted (increased reactivity and spontaneity) - Speech Speech: Appropriate - Formal Thought Process Formal Thought Process: No Impairment - Suicidal Ideation Suicidal Ideation: No - Homicidal Ideation Homicidal Ideation: No Goal/Treatment Plan - Goal/Treatment Plan Need for Continued Stay: Remain at risks for inpatient hospitalization, Severe depression anxiety, Discharge may exacerbated symptoms, Severe functional impairment Progress Toward Problem(s) and Goals/Treatment Plan: * group, milieu and supportive tx * Neurontin 300 mg po TID * Paxil 20 mg po HS * Ambien 5 mg po HS for insomnia * Ativan 3 mg po three times daily, decreased to 3 mg AM, 2 mg PM and 3 mg HS on 12/21/18 and then to 2 mg po bid and 3 mg po HS on 12/22/18 and then to 2/2/2 on 12/23/18 and further decreased to 2/1/2 on 12/24/18 and then to //2 on 12/25/18 and on 12/26/18. ~ I reviewed the side effects of benzos and need for taper with patient at bedside on 12/22/18. Will continue to taper as tolerated * Vitals reviewed and noted below: Selected Entries 12/25/18 12/25/18 07:18 16:00 Temperature 98.0 F Pulse Rate 65 80 Respiratory 20 Rate Blood Pressure 98/68 L 122/81 * Spoke with patient's brother, Dr. Rikki Whitney [phone] (patient gave consent during tx team meeting) on 12/23/18 regarding patient's history, progress, recommendations and medications as well as diagnosis. Estimated Date of D/C: 12/23/18
[2018-12-26] MEDS: Multivitamin With Minerals Tab PO SCH (11:04)
[2018-12-27 07:17] VITALS: BP 117/68; PULSE 63
[2018-12-27] MEDS: Multivitamin With Minerals Tab PO SCH (09:25)
--- NOTE | 2018-12-27 14:26 | PCM.PYCHDC ---
Mental Status Examination - Mental Status Examination Orientation: Person, Place, Situation Memory: Intact Mood: Neutral Affect: Broad Speech: Appropriate Attention: WNL Concentration: WNL Association: WNL Fund of Knowledge: WNL Formal Thought Process: No Impairment Description of patient's judgement and insight: Improved and fair I/J Psychotic Thoughts and Behaviors: Patient denied hallucinations or paranoia. Delusions were not elicited Suicidal Ideation: No Current Homicidal Ideation?: No Discharge Summary - Discharge Note Reason for Hospitalization: Patient is a 43-year old female of mental illness, most likely mood spectrum disorder, alcohol use disorder [address] admission [address]. 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 Psychiatric History (includes Medical, Family, Personal Hx): See HPI Laboratory Data: Laboratory Tests 12/16/18 12/16/18 12/16/18 15:03 15:03 15:03 WBC RBC Hgb Hct MCV MCH MCHC RDW Plt Count MPV Neut % (Auto) Lymph % (Auto) [place] % (Auto) Eos % (Auto) Baso % (Auto) Lymph # (Auto) [place] # (Auto) Eos # (Auto) Baso # (Auto) Absolute Neuts (auto) Sodium 142 Potassium 3.4 L Chloride 104 Carbon Dioxide 24 Anion Gap 17 BUN 6 L Creatinine 0.4 L Est GFR ( Amer) > 60 Est GFR (Non-Af Amer) > 60 Random Glucose 92 Fasting Glucose Calcium 8.5 Magnesium 1.7 Total Bilirubin 0.2 AST 192 H D ALT 71 H Alkaline Phosphatase 55 Total Protein 7.3 Albumin 4.1 Globulin 3.2 Albumin/Globulin Ratio 1.3 Triglycerides Cholesterol LDL Cholesterol Direct HDL Cholesterol TSH 3rd Generation Beta HCG, Quant Urine Color Urine Appearance Urine pH Ur Specific [place] Urine Protein Urine Glucose (UA) Urine Ketones Urine Blood Urine Nitrate Urine Bilirubin Urine Urobilinogen Ur Leukocyte Esterase Urine RBC Urine WBC Ur Epithelial Cells Urine HCG, Qual Salicylates Urine Opiates Screen Negative Urine Methadone Screen Negative Acetaminophen Ur Barbiturates Screen Negative Ur Phencyclidine Scrn Negative Ur Amphetamines Screen Negative U Benzodiazepines Scrn Negative U Oth Cocaine Metabols Negative U Cannabinoids Screen Negative Alcohol, Quantitative 388 H* RPR 12/16/18 12/16/18 12/16/18 15:03 15:03 15:03 WBC 4.2 L D RBC 3.97 Hgb 12.1 Hct 36.4 MCV 91.7 D MCH 30.5 MCHC 33.2 RDW 13.1 Plt Count 194 MPV 9.1 Neut % (Auto) 57.8 Lymph % (Auto) 34.1 [place] % (Auto) 7.6 H Eos % (Auto) 0.0 L Baso % (Auto) 0.5 Lymph # (Auto) 1.4 [place] # (Auto) 0.3 Eos # (Auto) 0.0 Baso # (Auto) 0.02 Absolute Neuts (auto) 2.42 Sodium Potassium Chloride Carbon Dioxide Anion Gap BUN Creatinine Est GFR ( Amer) Est GFR (Non-Af Amer) Random Glucose Fasting Glucose Calcium Magnesium Total Bilirubin AST ALT Alkaline Phosphatase Total Protein Albumin Globulin Albumin/Globulin Ratio Triglycerides Cholesterol LDL Cholesterol Direct HDL Cholesterol TSH 3rd Generation Beta HCG, Quant Urine Color Yellow Urine Appearance Clear Urine pH 6.5 Ur Specific [place] <= 1.005 Urine Protein Negative Urine Glucose (UA) Negative Urine Ketones Negative Urine Blood Trace-lysed H Urine Nitrate Negative Urine Bilirubin Negative Urine Urobilinogen 0.2 Ur Leukocyte Esterase Negative Urine RBC None Urine WBC None Ur Epithelial Cells None Urine HCG, Qual Negative Salicylates < 1 L Urine Opiates Screen Urine Methadone Screen Acetaminophen < 10.0 L Ur Barbiturates Screen Ur Phencyclidine Scrn Ur Amphetamines Screen U Benzodiazepines Scrn U Oth Cocaine Metabols U Cannabinoids Screen Alcohol, Quantitative RPR 12/16/18 12/17/18 12/17/18 15:03 06:00 06:00 WBC RBC Hgb Hct MCV MCH MCHC RDW Plt Count MPV Neut % (Auto) Lymph % (Auto) [place] % (Auto) Eos % (Auto) Baso % (Auto) Lymph # (Auto) [place] # (Auto) Eos # (Auto) Baso # (Auto) Absolute Neuts (auto) Sodium Potassium Chloride Carbon Dioxide Anion Gap BUN Creatinine Est GFR ( Amer) Est GFR (Non-Af Amer) Random Glucose Fasting Glucose 114 H Calcium Magnesium Total Bilirubin AST ALT Alkaline Phosphatase Total Protein Albumin Globulin Albumin/Globulin Ratio Triglycerides 156 Cholesterol 225 H LDL Cholesterol Direct 93 HDL Cholesterol 137 H TSH 3rd Generation Beta HCG, Quant < 2.39 Urine Color Urine Appearance Urine pH Ur Specific [place] Urine Protein Urine Glucose (UA) Urine Ketones Urine Blood Urine Nitrate Urine Bilirubin Urine Urobilinogen Ur Leukocyte Esterase Urine RBC Urine WBC Ur Epithelial Cells Urine HCG, Qual Salicylates Urine Opiates Screen Urine Methadone Screen Acetaminophen Ur Barbiturates Screen Ur Phencyclidine Scrn Ur Amphetamines Screen U Benzodiazepines Scrn U Oth Cocaine Metabols U Cannabinoids Screen Alcohol, Quantitative RPR Nonreactive 12/17/18 06:00 WBC RBC Hgb Hct MCV MCH MCHC RDW Plt Count MPV Neut % (Auto) Lymph % (Auto) [place] % (Auto) Eos % (Auto) Baso % (Auto) Lymph # (Auto) [place] # (Auto) Eos # (Auto) Baso # (Auto) Absolute Neuts (auto) Sodium Potassium Chloride Carbon Dioxide Anion Gap BUN Creatinine Est GFR ( Amer) Est GFR (Non-Af Amer) Random Glucose Fasting Glucose Calcium Magnesium Total Bilirubin AST ALT Alkaline Phosphatase Total Protein Albumin Globulin Albumin/Globulin Ratio Triglycerides Cholesterol LDL Cholesterol Direct HDL Cholesterol TSH 3rd Generation 2.67 Beta HCG, Quant Urine Color Urine Appearance Urine pH Ur Specific [place] Urine Protein Urine Glucose (UA) Urine Ketones Urine Blood Urine Nitrate Urine Bilirubin Urine Urobilinogen Ur Leukocyte Esterase Urine RBC Urine WBC Ur Epithelial Cells Urine HCG, Qual Salicylates Urine Opiates Screen Urine Methadone Screen Acetaminophen Ur Barbiturates Screen Ur Phencyclidine Scrn Ur Amphetamines Screen U Benzodiazepines Scrn U Oth Cocaine Metabols U Cannabinoids Screen Alcohol, Quantitative RPR Consultations:: List each consultation separately and include: 1. Reason for request. 2. Findings. 3. Follow-up Consultations: 12/17/18 DR. BLISS Summary of Hospital Course include:: 1. Description of specific treatment plan utilized for patients during their course of treatmen. 2. Summarize the time- course for resolution of acute symptoms and/or regressed behaviors. 3. Describe issues identified and worked on during hospitalization. 4. Describe medication utilized. 5. Describe medical problems identified and treated. 6. Reassessment of suicide risk Summary of Hospital Course: Patient is a 43-year old female of mental illness, most likely mood spectrum disorder, alcohol use disorder [address] previous [address] admission [address]. 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 Patient continues to report that she is feeling better. Grooming is improving and patient remains well oriented to month, year, location and circumstances. Affect is brighter and more reactive and she seems more motivated for sobriety. Expresses appreciation for her family's concern and her treatment thus far. Patient is still committed to attending a 21 day rehab for further treatment of her alcohol addiction and has been discussing different options with SW. Thus far she is tolerating her medications, including taper of ativan. Denies any new discomfort or pain. Sleep was little more restless in the last couple of nights however not distressingly so. Presently patient denies hallucinations, SI or new concerns. As usual, thought process is coherent without evidence of psychosis. Staff note that patient has been more visible and interactive with peers. Seen smiling and joking around. There were no behavioral issues over the course of her admission. Spoke with patient's brother, Dr. Rikki Whitney [phone] (patient gave consent during tx team meeting) on 12/23/18 regarding patient's history, progress, recommendations and medications as well as diagnosis. - Final Diagnosis (DSM 5) Condition upon Discharge: STABLE DSM 5: Rule out major depressive disorder Rule out adjustment disorder with depressed and anxious mood Rule out substance-induced mood disorder Rule out PTSD Rule out substance-induced anxiety Alcohol use disorder Alcohol withdrawal symptoms Disposition: HOME/ ROUTINE Follow-up Treatment Plan: 21 DAY REHAB, SEE SW NOTE FOR MORE INFORMATION RX PROVIDED 14 DAYS + 2 RF: * Neurontin 300 mg po TID for anxiety and mood control * Paxil 20 mg po HS for depression and anxiety * Ambien 5 mg po HS for insomnia * Ativan 1 mg po three times daily PRN: ANXIETY * MVI DAILY * THIAMINE 100 MG PO DAILY * FOLIC ACID 1 MG PO DAILY Prescriptions/Medication Reconciliation: Folic Acid 1 mg PO DAILY #14 tab Gabapentin [Neurontin] 300 mg PO TID #45 cap LORazepam [Ativan] 1 mg PO TID PRN #45 tab PRN Reason: Anxiety Multimineral/Multivitamin [Therapeutic-M Tab] 1 tab PO DAILY #14 tab Paroxetine HCl [Paxil] 20 mg PO HS #14 tablet Thiamine [Vitamin B1 Tab] 100 mg PO DAILY #14 tab Zolpidem [Ambien] 5 mg PO HS #14 tab - Smoking Cessation Smoking Cessation Medication prescribed: No - Antipsychotic Medications Pt discharged on 2 or more routine antipsychotic medications: No
== END 2018-12-27 13:10 | disposition home or self-care (01) | DRG 430 ==
LOC: ED 14:00 → ERH 22:39 → PSYC 23:50
PROVIDERS: ADMIT Psychiatry & Neurology Psychiatry; ATTEND Psychiatry & Neurology Psychiatry
DX: F39 Unspecified mood [affective] disorder (principal); F10.239 Alcohol dependence with withdrawal, unspecified; E87.6 Hypokalemia; F10.229 Alcohol dependence with intoxication, unspecified; Y90.8 Blood alcohol level of 240 mg/100 ml or more; F41.8 Other specified anxiety disorders; F43.10 Post-traumatic stress disorder, unspecified; F17.200 Nicotine dependence, unspecified, uncomplicated; Z85.828 Personal history of other malignant neoplasm of skin; N88.2 Stricture and stenosis of cervix uteri

== ENCOUNTER 2019-01-26 13:24 | Emergency (ER) | payer OTHER ==
[2019-01-26 13:24] VITALS: BMI 25.0
--- NOTE | 2019-01-26 13:47 | ED PDOC ---
Arrival/HPI - General Historian: Patient - History of Present Illness Narrative History of Present Illness (Text): 01/26/19 13:51 Pt is a 43 yo female with a PMH of depression, drug use, and alcoholism who was brought in to the ED because of alcohol intoxication. Pt is acutely intoxicated but able to relate some history. Pt states she has been drinking. Denies chest pain, shortness of breath or any other pain at this time. 01/26/19 16:09 ativan 2mg IVP Time/Duration: Prior to Arrival Symptom Course: Unchanged Activities at Onset: Rest Context: Sitting <Ulises Kaufman - Last Filed: 01/26/19 18:45> <Gaurav Garcia - Last Filed: 01/27/19 09:58> <Charli Joseph - Last Filed: 01/27/19 21:41> - General Chief Complaint: Alcohol Ingestion Past Medical History - Infectious Disease Hx of Infectious Diseases: None - Tetanus Immunization Tetanus Immunization: Unknown - Past Medical History Past Medical History: Unable to Obtain - Cardiac Hx Cardiac Disorders: No - Pulmonary Hx Respiratory Disorders: No - Neurological Hx Neurological Disorder: No - HEENT Hx HEENT Disorder: No - Renal Hx Renal Disorder: No - Endocrine/Metabolic Hx Endocrine Disorders: No - Hematological/Oncological Hx Blood Disorders: No - Integumentary Hx Dermatological Disorder: No - Musculoskeletal/Rheumatological Hx Musculoskeletal Disorders: No - Gastrointestinal Hx Gastrointestinal Disorders: No - Genitourinary/Gynecological Hx Genitourinary Disorders: No - Psychiatric Hx Anxiety: Yes Hx Substance Use: Yes - Past Surgical History Past Surgical History: Unable to Obtain - Anesthesia Hx Anesthesia: No - Suicidal Assessment Feels Threatened In Home Enviroment: No <Ulises Kaufman - Last Filed: 01/26/19 18:45> Family/Social History Family/Social History: No Known Family HX Smoking Status: Current Some Days Smoker Hx Alcohol Use: Yes Frequency of alcohol use: Daily Hx Substance Use: Yes Hx Substance Use Treatment: No <Ulises Kaufman - Last Filed: 01/26/19 18:45> Allergies/Home Meds <Ulises Kaufman - Last Filed: 01/26/19 18:45> <Gaurav Garcia - Last Filed: 01/27/19 09:58> <Charli Joseph - Last Filed: 01/27/19 21:41> Allergies/Adverse Reactions: Allergies EGG Allergy (Verified 01/26/19 22:26) RASH pineapple Allergy (Verified 01/26/19 22:26) RASH ziprasidone HCl [From Geodon] Adverse Reaction (Verified 01/26/19 22:26) FATIGUE Review of Systems - Review of Systems Systems not reviewed;Unavailable: Intoxicated Eyes: Normal ENT: Normal Respiratory: Normal Cardiovascular: Normal Gastrointestinal: Normal Musculoskeletal: Normal Skin: Normal Neurological: Normal Endocrine: Normal Hemo/Lymphatic: Normal Psychiatric: Normal <Ulises Kaufman - Last Filed: 01/26/19 18:45> Physical Exam Vital Signs Reviewed: Yes Temperature: Afebrile Blood Pressure: Normal Pulse: Regular Respiratory Rate: Normal Appearance: Positive for: Well-Appearing Mental Status: Positive for: Alert and Oriented X 3 - Systems Exam Head: Present: Atraumatic, Normocephalic Pupils: Present: PERRL Extroacular Muscles: Present: EOMI Mouth: Present: Moist Mucous Membranes Neck: Present: Normal Range of Motion Respiratory/Chest: Present: Clear to Auscultation, Good Air Exchange Abdomen: No: Tenderness, Distention Upper Extremity: Present: Normal Inspection Lower Extremity: Present: Normal Inspection Neurological: Present: GCS=15, CN II-XII Intact Skin: Present: Warm, Dry Psychiatric: Present: Alert, Oriented x 3 <Ulises Kaufman - Last Filed: 01/26/19 18:45> Vital Signs Temp Pulse Resp BP Pulse Ox 01/26/19 13:24 98.6 F 88 18 121/78 98 <Gaurav Garcia - Last Filed: 01/27/19 09:58> Vital Signs Temp Pulse Resp BP Pulse Ox 01/26/19 19:31 89 18 132/71 97 01/26/19 17:00 98.4 F 86 17 120/72 100 01/26/19 15:24 98 F 79 18 119/59 L 99 01/26/19 13:24 98.6 F 88 18 121/78 98 <Charli Joseph - Last Filed: 01/27/19 21:41> Medical Decision Making ED Course and Treatment: 01/26/19 14:17 no acute distress monitor till sobriety 01/26/19 18:43 Pt seen, examined, assessment and plan discussed with Dr Radha Kaufman PGY1 <Ulises Kaufman - Last Filed: 01/26/19 18:45> ED Course and Treatment: 01/26/19 15:58 Patient Seen with Resident: In agreement with resident note which contains more details about the patient. Patient seen and evaluated with resident. Came up with plan and treatment together. Patient pending sobriety, will sign out to ED night team. - Medication Orders Current Medication Orders: Discontinued Medications Lorazepam (Ativan) 2 mg IM ONCE ONE; Protocol Stop: 01/26/19 15:32 Last Admin: 01/26/19 15:41 Dose: 2 mg IM Administration Charges Document 01/26/19 15:41 GMI (Rec: 01/26/19 15:42 GMI [id number]) Injection Site MAR Injection Site Left Deltoid Charges for Administration # of IM Administrations 1 <Gaurav Garcia - Last Filed: 01/27/19 09:58> - Medication Orders Current Medication Orders: Discontinued Medications Lorazepam (Ativan) 2 mg IM ONCE ONE; Protocol Stop: 01/26/19 15:32 Last Admin: 01/26/19 15:41 Dose: 2 mg IM Administration Charges Document 01/26/19 15:41 GMI (Rec: 01/26/19 15:42 GMI [id number]) Injection Site MAR Injection Site Left Deltoid Charges for Administration # of IM Administrations 1 <Charli Joseph - Last Filed: 01/27/19 21:41> - PA / TECHNICAL SPEC / Resident Statement MD/DO has reviewed & agrees with the documentation as recorded. - Scribe Statement The provider has reviewed the documentation as recorded by the Scribe Antonette Tadeo All medical record entries made by the Scribe were at my direction and personally dictated by me. I have reviewed the chart and agree that the record accurately reflects my personal performance of the history, physical exam, medical decision making, and the department course for this patient. I have also personally directed, reviewed, and agree with the discharge instructions and disposition. <Gaurav Garcia - Last Filed: 01/27/19 09:58> Disposition/Present on Arrival - Present on Arrival Any Indicators Present on Arrival: No History of DVT/PE: No History of Uncontrolled Diabetes: No Urinary Catheter: No History of Decub. Ulcer: No History Surgical Site Infection Following: None - Disposition Have Diagnosis and Disposition been Completed?: Yes Disposition Time: 18:46 Patient Plan: Discharge <Ulises Kaufman - Last Filed: 01/26/19 18:45> <Gaurav Garcia - Last Filed: 01/27/19 09:58> <Charli Joseph - Last Filed: 01/27/19 21:41> - Disposition Diagnosis: Alcohol intoxication Disposition: HOME/ ROUTINE Condition: GOOD Discharge Instructions (ExitCare): Alcohol Use - When Is Drinking a Problem? Forms: [employer] [facility] (Romanian)
[2019-01-26 19:32] VITALS: BP 132/71; PULSE 89; RESP 18; O2SAT 97
[2019-01-26 19:50] VITALS: TEMP 98.5
--- NOTE | 2019-01-26 21:14 | ED PDOC ---
Physical Exam Vital Signs Temp Pulse Resp BP Pulse Ox 01/26/19 19:48 98.5 F 89 18 132/71 97 01/26/19 19:31 89 18 132/71 97 01/26/19 17:00 98.4 F 86 17 120/72 100 01/26/19 15:24 98 F 79 18 119/59 L 99 01/26/19 13:24 98.6 F 88 18 121/78 98 Medical Decision Making ED Course and Treatment: 01/26/19 19:00 Case endorsed to me by Dr. Garcia, pending sobriety, re-evaluation, and disposition. 01/26/19 19:45 On re-evaluation, pt is awake, alert, ambulating with steady gait. In no acute distress, clinically sober. Pt stable for d/c. - Medication Orders Current Medication Orders: Discontinued Medications Lorazepam (Ativan) 2 mg IM ONCE ONE; Protocol Stop: 01/26/19 15:32 Last Admin: 01/26/19 15:41 Dose: 2 mg IM Administration Charges Document 01/26/19 15:41 GMI (Rec: 01/26/19 15:42 GMI [id number]) Injection Site MAR Injection Site Left Deltoid Charges for Administration # of IM Administrations 1 Disposition/Present on Arrival - Present on Arrival Any Indicators Present on Arrival: No History of DVT/PE: No History of Uncontrolled Diabetes: No Urinary Catheter: No History of Decub. Ulcer: No History Surgical Site Infection Following: None - Disposition Have Diagnosis and Disposition been Completed?: Yes Diagnosis: Alcohol intoxication Disposition: HOME/ ROUTINE Disposition Time: 19:45 Condition: GOOD Discharge Instructions (ExitCare): Alcohol Use - When Is Drinking a Problem? Forms: [employer] [facility] (Mauritanian)
== END 2019-01-26 19:50 | disposition home or self-care (01) ==
LOC: ED 13:24
DX: F10.129 Alcohol abuse with intoxication, unspecified (principal)
CPT/HCPCS: 81025; 96372; 99284; J2060

== ENCOUNTER 2019-01-26 22:16 | Emergency (ER) | payer OTHER ==
[2019-01-26 22:26] VITALS: BMI 25.6
[2019-01-26 23:12] VITALS: TEMP 97.6
--- NOTE | 2019-01-26 23:28 | ED PDOC ---
Arrival/HPI - General Chief Complaint: Alcohol Ingestion Time Seen by Provider: 01/26/19 22:17 Historian: Patient - History of Present Illness Narrative History of Present Illness (Text): 01/26/19 23:24 Maria Teresa Whitney is a 43 year old female, whose past medical history includes alcohol abuse, rhabdomyolysis, and basal cell cancer status post excision, who presents to the ED brought in by EMS for alcohol intoxication tonight. Patients admits to drinking alcohol and states she feels fine. Patient was seen in the ED earlier today for similar complaint. Patient denies any fever, chills, chest pain, shortness of breath, nausea, vomiting, diarrhea, urinary symptoms, back pain, neck pain, headache, dizziness, or any other complaints. Time/Duration: Other (tonight) Symptom Onset: Gradual Symptom Course: Unchanged Activities at Onset: Light Past Medical History - Provider Review Nursing Documentation Reviewed: Yes - Infectious Disease Hx of Infectious Diseases: None - Tetanus Immunization Tetanus Immunization: Unknown - Past Medical History Past Medical History: Unable to Obtain - Cardiac Hx Cardiac Disorders: No - Pulmonary Hx Respiratory Disorders: No - Neurological Hx Neurological Disorder: No - HEENT Hx HEENT Disorder: No - Renal Hx Renal Disorder: No - Endocrine/Metabolic Hx Endocrine Disorders: No - Hematological/Oncological Hx Blood Disorders: No - Integumentary Hx Dermatological Disorder: No - Musculoskeletal/Rheumatological Hx Musculoskeletal Disorders: No - Gastrointestinal Hx Gastrointestinal Disorders: No - Genitourinary/Gynecological Hx Genitourinary Disorders: No - Psychiatric Hx Anxiety: Yes Hx Substance Use: Yes - Past Surgical History Past Surgical History: Unable to Obtain - Anesthesia Hx Anesthesia: No - Suicidal Assessment Feels Threatened In Home Enviroment: No Family/Social History - Physician Review Nursing Documentation Reviewed: Yes Family/Social History: Unknown Family HX Smoking Status: Current Some Days Smoker Hx Alcohol Use: Yes Frequency of alcohol use: Daily Hx Substance Use: Yes Hx Substance Use Treatment: No Allergies/Home Meds Allergies/Adverse Reactions: Allergies EGG Allergy (Verified 01/26/19 22:26) RASH pineapple Allergy (Verified 01/26/19 22:26) RASH ziprasidone HCl [From Geodon] Adverse Reaction (Verified 01/26/19 22:26) FATIGUE Review of Systems - Physician Review All systems were reviewed & negative as marked: Yes - Review of Systems Constitutional: Normal. absent: Fevers Eyes: Normal ENT: Normal Respiratory: Normal. absent: SOB, Cough Cardiovascular: Normal. absent: Chest Pain Gastrointestinal: Normal. absent: Abdominal Pain, Diarrhea, Nausea, Vomiting Genitourinary Female: Normal. absent: Dysuria, Frequency, Hematuria, Urine Output Changes Musculoskeletal: Normal. absent: Back Pain, Neck Pain Skin: Normal. absent: Rash Neurological: Normal. absent: Headache, Dizziness Endocrine: Normal Hemo/Lymphatic: Normal Psychiatric: Normal Physical Exam Vital Signs Reviewed: Yes Vital Signs Temp Pulse Resp BP Pulse Ox 01/26/19 23:11 97.6 F 102 H 16 128/88 95 Temperature: Afebrile Blood Pressure: Normal Pulse: Regular Respiratory Rate: Normal Appearance: Positive for: Well-Appearing, Non-Toxic, Comfortable Pain Distress: None Mental Status: Positive for: Alert and Oriented X 3 - Systems Exam Head: Present: Atraumatic, Normocephalic Pupils: Present: PERRL Extroacular Muscles: Present: EOMI Conjunctiva: Present: Normal Mouth: Present: Moist Mucous Membranes Neck: Present: Normal Range of Motion Respiratory/Chest: Present: Clear to Auscultation, Good Air Exchange. No: Respiratory Distress, Accessory Muscle Use Cardiovascular: Present: Regular Rate and Rhythm, Normal S1, S2. No: Murmurs Abdomen: No: Tenderness, Distention, Peritoneal Signs Back: Present: Normal Inspection Upper Extremity: Present: Normal Inspection. No: Cyanosis, Edema Lower Extremity: Present: Normal Inspection. No: Edema Neurological: Present: GCS=15, CN II-XII Intact, Speech Normal Skin: Present: Warm, Dry, Normal Color. No: Rashes Psychiatric: Present: Alert, Oriented x 3, Normal Insight, Normal Concentration Medical Decision Making ED Course and Treatment: 01/26/19 23:24 Impression: 43 year old female brought in for alcohol intoxication. Plan: -- Geodon -- Reassess and disposition Prior Visits: Notes and results from previous visits were reviewed. Progress Notes: - Medication Orders Current Medication Orders: Discontinued Medications Ziprasidone (Geodon Inj) 10 mg IM STAT STA; Protocol Stop: 01/26/19 22:30 Last Admin: 01/26/19 22:41 Dose: 10 mg IM Administration Charges Document 01/26/19 22:41 IT (Rec: 01/26/19 22:41 [place] [id number] Injection Site MAR Injection Site Left Deltoid Charges for Administration # of IM Administrations 1 - Transfer of Care Patient signed out to Dr:: imm sobriety - Scribe Statement The provider has reviewed the documentation as recorded by the Estefaniaibcristino Carnes Provider Scribe Attestation: All medical record entries made by the Scribe were at my direction and personally dictated by me. I have reviewed the chart and agree that the record accurately reflects my personal performance of the history, physical exam, medical decision making, and the department course for this patient. I have also personally directed, reviewed, and agree with the discharge instructions and disposition.\ Disposition/Present on Arrival - Present on Arrival Any Indicators Present on Arrival: No History of DVT/PE: No History of Uncontrolled Diabetes: No Urinary Catheter: No History of Decub. Ulcer: No History Surgical Site Infection Following: None - Disposition Have Diagnosis and Disposition been Completed?: Yes Diagnosis: Alcohol intoxication Disposition: HOME/ ROUTINE Disposition Time: 07:00 Condition: GOOD Discharge Instructions (ExitCare): Alcohol Use - When Is Drinking a Problem? Forms: [employer] (Armenian)
[2019-01-27 06:00] VITALS: RESP 18
--- NOTE | 2019-01-27 08:07 | ED PDOC ---
Physical Exam Vital Signs Temp Pulse Resp BP Pulse Ox 01/27/19 03:00 89 18 125/72 96 01/27/19 01:00 90 18 133/76 98 01/26/19 23:11 97.6 F 102 H 16 128/88 95 Medical Decision Making ED Course and Treatment: Signed out to me at change of shift pending sobriety. At 8:07, patient seen walking to bathroom without unsteadiness. - Medication Orders Current Medication Orders: Discontinued Medications Ziprasidone (Geodon Inj) 10 mg IM STAT STA; Protocol Stop: 01/26/19 22:30 Last Admin: 01/26/19 22:41 Dose: 10 mg IM Administration Charges Document 01/26/19 22:41 IT (Rec: 01/26/19 22:41 IT [facility] [id number]) Injection Site MAR Injection Site Left Deltoid Charges for Administration # of IM Administrations 1 Disposition/Present on Arrival - Present on Arrival Any Indicators Present on Arrival: No History of DVT/PE: No History of Uncontrolled Diabetes: No Urinary Catheter: No History of Decub. Ulcer: No History Surgical Site Infection Following: None - Disposition Have Diagnosis and Disposition been Completed?: Yes Diagnosis: Alcohol intoxication Disposition: HOME/ ROUTINE Disposition Time: 08:07 Patient Plan: Discharge Condition: GOOD Discharge Instructions (ExitCare): Alcohol Use - When Is Drinking a Problem? Forms: [employer] ([place] Citizen)
[2019-01-27 08:09] VITALS: BP 127/89; PULSE 81; O2SAT 98
== END 2019-01-27 08:18 | disposition home or self-care (01) ==
LOC: ED 22:16
DX: F10.129 Alcohol abuse with intoxication, unspecified (principal)
CPT/HCPCS: 96372; 99283; J3486

== ENCOUNTER 2019-01-27 22:36 | Emergency (ER) | payer OTHER ==
[2019-01-27 22:37] VITALS: BMI 25.6
[2019-01-27 22:51] VITALS: RESP 18
--- NOTE | 2019-01-27 23:37 | ED PDOC ---
Arrival/HPI - General Chief Complaint: Alcohol Ingestion Time Seen by Provider: 01/27/19 22:38 Historian: Patient EM Caveat: Intoxicated - History of Present Illness Narrative History of Present Illness (Text): 01/27/19 23:32 43 year old female, whose past medical history includes alcohol abuse, rhabdomyolysis, and basal cell cancer status post excision, who presents to the ED brought in by EMS for public intoxication tonight. Patient drank too much alcohol and did not make it home. HPI and ROS limited due to patient's state of intoxication. Past Medical History - Provider Review Nursing Documentation Reviewed: Yes - Infectious Disease Hx of Infectious Diseases: None - Tetanus Immunization Tetanus Immunization: Unknown - Past Medical History Past Medical History: Unable to Obtain - Cardiac Hx Cardiac Disorders: No - Pulmonary Hx Respiratory Disorders: No - Neurological Hx Neurological Disorder: No - HEENT Hx HEENT Disorder: No - Renal Hx Renal Disorder: No - Endocrine/Metabolic Hx Endocrine Disorders: No - Hematological/Oncological Hx Blood Disorders: No - Integumentary Hx Dermatological Disorder: No - Musculoskeletal/Rheumatological Hx Musculoskeletal Disorders: No - Gastrointestinal Hx Gastrointestinal Disorders: No - Genitourinary/Gynecological Hx Genitourinary Disorders: No - Psychiatric Hx Anxiety: Yes Hx Substance Use: Yes - Past Surgical History Past Surgical History: Unable to Obtain - Anesthesia Hx Anesthesia: No - Suicidal Assessment Feels Threatened In Home Enviroment: No Family/Social History - Physician Review Nursing Documentation Reviewed: Yes Family/Social History: No Known Family HX Smoking Status: Current Some Days Smoker Hx Alcohol Use: Yes Hx Substance Use: Yes Hx Substance Use Treatment: No Allergies/Home Meds Allergies/Adverse Reactions: Allergies EGG Allergy (Verified 01/26/19 22:26) RASH pineapple Allergy (Verified 01/26/19 22:26) RASH ziprasidone HCl [From Geodon] Adverse Reaction (Verified 01/26/19 22:26) FATIGUE Review of Systems - Physician Review All systems were reviewed & negative as marked: Yes - Review of Systems Systems not reviewed;Unavailable: Intoxicated Physical Exam Vital Signs Reviewed: Yes Vital Signs Temp Pulse Resp BP Pulse Ox 01/27/19 22:49 97.8 F 110 H 18 125/92 H 98 Temperature: Afebrile Blood Pressure: Normal Pulse: Tachycardic Respiratory Rate: Normal Appearance: Positive for: Well-Appearing, Non-Toxic, Comfortable Pain Distress: None Mental Status: Positive for: other (intoxicated ) - Systems Exam Head: Present: Atraumatic, Normocephalic Pupils: Present: PERRL Extroacular Muscles: Present: EOMI Conjunctiva: Present: Normal Mouth: Present: Moist Mucous Membranes, Other (alcohol on breath ) Neck: Present: Normal Range of Motion Respiratory/Chest: Present: Clear to Auscultation, Good Air Exchange. No: Respiratory Distress, Accessory Muscle Use Cardiovascular: Present: Regular Rate and Rhythm, Normal S1, S2. No: Murmurs Abdomen: No: Tenderness, Distention, Peritoneal Signs Back: Present: Normal Inspection Upper Extremity: Present: Normal Inspection. No: Cyanosis, Edema Lower Extremity: Present: Normal Inspection, Other (skin graft healing rt leg). No: Edema Skin: Present: Warm, Dry, Normal Color. No: Rashes Psychiatric: Present: Alert, Intoxicated Medical Decision Making ED Course and Treatment: 01/27/19 23:35 Impression: 43 year old female presents for public intoxication tonight. Plan: -- Ativan, Geodon Inj -- Restraint/Seclusion for violent behavior -- Sobriety -- Reassess and disposition Prior Visits: Notes and results from previous visits were reviewed. Progress Notes: Patient combative and uncooperative. Patient will be restrained and sedated for the safety of herself and for the safety of the staff. - Medication Orders Current Medication Orders: Discontinued Medications Lorazepam (Ativan) 1 mg IM ONCE ONE; Protocol Stop: 01/27/19 23:22 - Transfer of Care Patient signed out to Dr:Wally garciarialfredito - Scribe Statement The provider has reviewed the documentation as recorded by the [place] Bender Provider Scribe Attestation: All medical record entries made by the Estefaniaibcristino were at my direction and personally dictated by me. I have reviewed the chart and agree that the record accurately reflects my personal performance of the history, physical exam, medical decision making, and the department course for this patient. I have also personally directed, reviewed, and agree with the discharge instructions and disposition. Disposition/Present on Arrival - Present on Arrival Any Indicators Present on Arrival: No History of DVT/PE: No History of Uncontrolled Diabetes: No Urinary Catheter: No History of Decub. Ulcer: No History Surgical Site Infection Following: None - Disposition Have Diagnosis and Disposition been Completed?: Yes Diagnosis: Alcohol use disorder Disposition Time: 07:00 Patient Problems: Current Active Problems Problem Status Onset Alcohol use disorder Acute Condition: STABLE Forms: [employer] (Ivorian)
--- NOTE | 2019-01-28 07:17 | ED PDOC ---
Physical Exam Vital Signs Reviewed: Yes Vital Signs Temp Pulse Resp BP Pulse Ox 01/27/19 22:49 97.8 F 110 H 18 125/92 H 98 Temperature: Afebrile Blood Pressure: Normal Pulse: Tachycardic Respiratory Rate: Normal Appearance: Positive for: Well-Appearing, Non-Toxic, Comfortable Pain Distress: None Mental Status: Positive for: Alert and Oriented X 3 - Systems Exam Head: Present: Atraumatic, Normocephalic Pupils: Present: PERRL Extroacular Muscles: Present: EOMI Upper Extremity: Present: Normal Inspection Lower Extremity: Present: Normal Inspection Neurological: Present: GCS=15, CN II-XII Intact, Speech Normal, Motor Func Grossly Intact, Normal Sensory Function, Gait Normal Psychiatric: Present: Alert, Oriented x 3. No: Suicidal Ideation, Homicidal Ideation Medical Decision Making ED Course and Treatment: 01/28/19 07:16 Patient signed out to me by Dr. Joseph, pending sobriety 01/28/19 08:09 Patient now AAox3 and ambulating around the ED without issue. She is requesting discharge. Denies HI/SI. Has no somatic complaints. - Medication Orders Current Medication Orders: Discontinued Medications Lorazepam (Ativan) 1 mg IM ONCE ONE; Protocol Stop: 01/27/19 23:22 Last Admin: 01/27/19 23:37 Dose: 1 mg IM Administration Charges Document 01/27/19 23:37 MA (Rec: 01/27/19 23:37 MA [id number]) Injection Site MAR Injection Site Left Vastus Lateralis Charges for Administration # of IM Administrations 1 Ziprasidone (Geodon Inj) 10 mg IM STAT STA; Protocol Stop: 01/27/19 23:51 Last Admin: 01/28/19 00:02 Dose: 10 mg IM Administration Charges Document 01/28/19 00:02 MA (Rec: 01/28/19 00:02 MA [id number]) Injection Site MAR Injection Site Right Vastus Lateralis Charges for Administration # of IM Administrations 1 - Scribe Statement The provider has reviewed the documentation as recorded by the Scribe Leroy Harden All medical record entries made by the Scribe were at my direction and personally dictated by me. I have reviewed the chart and agree that the record accurately reflects my personal performance of the history, physical exam, medical decision making, and the department course for this patient. I have also personally directed, reviewed, and agree with the discharge instructions and disposition. Disposition/Present on Arrival - Present on Arrival Any Indicators Present on Arrival: No History of DVT/PE: No History of Uncontrolled Diabetes: No Urinary Catheter: No History of Decub. Ulcer: No History Surgical Site Infection Following: None - Disposition Have Diagnosis and Disposition been Completed?: Yes Diagnosis: Alcohol use disorder Disposition: HOME/ ROUTINE Disposition Time: 08:07 Patient Plan: Discharge Patient Problems: Current Active Problems Problem Status Onset Alcohol use disorder Acute Condition: STABLE Discharge Instructions (ExitCare): Alcohol Abuse and Alcoholism (DC) Additional Instructions: Follow-up with PMD within 2 days. Return to ED if condition worsens. Forms: [employer] (Lithuanian)
[2019-01-28 08:27] VITALS: BP 137/86; PULSE 91; TEMP 98; O2SAT 95
== END 2019-01-28 08:27 | disposition home or self-care (01) ==
LOC: ED 22:36
DX: F10.10 Alcohol abuse, uncomplicated (principal)
CPT/HCPCS: 96372; 99283; J2060; J3486